=== PATIENT | female | born 1935 | race Caucasian/White ===

== ENCOUNTER 2019-11-23 11:34 | Inpatient (IN) ==
[2019-11-23] MEDS ORDERED: SODIUM CHLORIDE 0.9% 500 ML IV SCH (12:00)
[2019-11-23] MEDS ORDERED: VANCOMYCIN HCL 1,750 MG in SODIUM CHLORIDE 0.9% 500 ML IV ONE (12:06)
[2019-11-23] MEDS ORDERED: cefTRIAXone SODIUM 1,000 MG/50 ML BAG IV STA (12:06)
[2019-11-23] MEDS ORDERED: VANCOMYCIN CONSULT ACTIVE PRN (12:06)
--- NOTE | 2019-11-23 12:12 | Emergency Department Note ---
Impression & Plan Cellulitis, Lymphedema, Pelvic mass ED Provider Note NAME: ROBIN VILLAFUERTE AGE: 84 SEX: F : 1935 ARRIVES VIA: Walk-In INFORMANT: Patient, ED PROVIDER(S): Andry Barba DO CHIEF COMPLAINT: Lower extremity swelling HPI: The patient is an 84-year-old female who presented to the emergency department because of lower extremity swelling. The patient has a history of uterine cancer many years ago. She started having pelvic pain and was diagnosed with recurrence of her ovarian cancer. She has a very large pelvic mass. She s tarted receiving chemotherapy at our facility for this mass. She has not had surgery or radiation for this current episode of uterine cancer. She started noticing lower extremity swelling and weight gain over the last few weeks. She started having worsening symptoms over the last few days and is noticed redness which extends into her upper thigh. She also has symptoms that are now starting to develop on her left leg. She had no fever. She denies having any coughing or chest pain. She does complain of dyspnea on exertion but mostly because her leg is so much bigger than it is at baseline. She was started on Keflex by her primary care physician on Sunday but symptoms continue to worsen so her daughter brought her to our emergency department today for further evaluation. The patient is currently taking an anticoagulant for atrial fibrillation. ROS: See above HPI for pertinent positives & negatives. A total of 10 systems reviewed and were otherwise negative. PAST MEDICAL HISTORY: See Below PAST SURGICAL HISTORY: See Below FAMILY HISTORY: See Below SOCIAL HISTORY: See Below HOME MEDICATIONS: See Below ALLERGIES: See Below VITALS: See Below PHYSICAL EXAMINATION: GENERAL: Patient is awake alert in no acute distress patient is resting comfortably and showing no signs of anxiety EYES: The conjunctivae are clear. The pupils are round and reactive. EARS, NOSE, MOUTH AND THROAT: The nose is without any evidence of any deformity. Mucous membranes are moist. Tongue is midline. NECK: The neck is nontender and supple. RESPIRATORY: Diminished breath sounds are noted at the left base with rales at the left base. CARDIOVASCULAR: Irregular rhythm was noted to auscultation. There was a metallic click noted. GASTROINTESTINAL: The abdomen is soft. Abdomen is nontender. PELVIS: The Pelvis is stable. No tenderness to palpation is noted. BACK: No midline tenderness or or step-off noted range of motion in flexion extension as well as rotation no signs of muscle spasm noted MUSCULOSKELETAL/EXTREMITIES: There is no evidence of gross deformity full range of motion is noted in the hips and shoulders. SKIN: Significant bilateral pedal edema was noted. There is significant edema especially in the right lower extremity. It extends into the thigh and into the lower abdomen. There is venous stasis changes in both lower extremities with an ulceration on the medial left lower leg. There is also cellulitis noted in the right lower extremity which extends from the knee distally. NEUROLOGIC: Patient is awake alert and oriented x3. MEDICAL DECISION MAKING: The patient is an 84-year-old female who presented to the emergency department for lower extremity swelling and redness. The patient has a right-sided pelvic mass from a previous known endometrial cancer. Because of this she has very poor venous return and developed right lower extremity lymphedema. The patient started on an antibiotic Sunday for erythema. She presents emergency department today because of worsening swelling worsening redness and signs of significant cellulitis. The patient has a history of valve replacement. For this reason she was treated with IV antibiotics. I discussed the patient's laboratory and radiographic studies with her. I also [facility] have agreed to evaluate the patient in the emergency department for further management and disposition. I discussed the patient's condition with her daughter as well. Triage Nursing notes reviewed. Prior medical records reviewed Vital Signs: reviewed and remarkable for hypotension. Differential diagnosis: Cellulitis, abscess, MRSA infection, DVT, necrotizing fasciitis, dermatitis, drug eruption, allergic reaction, as well as other pathologies. ER treatment provided: See below Diagnostics interpreted by me: ECG: EKG was obtained in the emergency department. My interpretation is atrial fibrillation at [address]pm. Anterior and lateral ST depressions were noted. There were no PVCs noted. This was compared to a tracing from October 282019. No significant changes were noted. Cardiac Monitoring: An order was placed for continuous cardiac monitoring. The monitor shows a rate of 82 bpm with sinus rhythm. Laboratory studies: As stated above and show below. Imaging studies: See below Consultation(s): 1515: I discussed this case with Dr. Gamez who [facility] They will evaluate the patient in the emergency department for further management and disposition. Past Med/Surg History Medical History Aortic stenosis S/p AVR 2004 Atrial fibrillation Chronic Congestive heart failure Chronic diastolic GERD (gastroesophageal reflux disease) Hyperlipidemia Hypertension Pulmonary HTN 06/07/15 [facility] PAP 43/12, wedge 15 with V waves to 29; 07/13/27 ECHO showed mild pulm HTN per records Uterine cancer Dx'ed 1998- s/p hysterectomy - recently found to have intrapelvic mass on 10/01/19- dx'ed with metastatic endometrial carcinoma Surgical History H/O endoscopy 2018 H/O: hysterectomy 12/1998 Uterine Cancer History of aortic valve replacement 01/2005 History of cardiac cath Prior to AVR- coronary arteries non obstructive Hx of colonoscopy 2019 Social History Smoking Status: Never smoker Second Hand Exposure: No; Do You Dip or Chew Tobacco: No; Tobacco Cessation Education Requested by Patient: No Hx Alcohol Use: No Hx Substance Use: No Preferred Language: Malay Communication Ability: Effective 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 Beliefs That Will Affect Care: None marital status: / Current Living Situation: Family current occupational status: retired How many Children do You have: 4 Other Information That Helps Us Care for You: No Feels Safe at Home: Yes Safety Concerns: Feels Safe At This Time Allergies Allergies Allergy/AdvReac Type Severity Reaction Status Date / Time amlodipine Allergy swelling Verified 11/23/19 15:04 feet, legs, hands lisinopril Allergy cough, Verified 11/23/19 15:04 swelling, SOB losartan Allergy rash, Verified 11/23/19 15:04 hives, swelling, sleeplessness mint Allergy Swelling Verified 11/23/19 15:04 of Lip/Tongue/Throat hormone pills Allergy swelling Uncoded 11/23/19 15:04 of joints, couldn't walk, grayskin Home Meds Home Medications Medication Instructions Recorded Confirmed acetaminophen 325 mg tablet 325 mg PO QID PRN 10/27/19 11/23/19 anastrozole 1 mg tablet 1 mg PO QAM 10/27/19 11/23/19 atorvastatin 40 mg tablet 40 mg PO QAM 10/27/19 11/23/19 cholecalciferol (vitamin D3) 25 25 mcg PO PM 10/27/19 11/23/19 mcg (1,000 unit) capsule dexamethasone 4 mg tablet 4 mg PO DAILY PRN 10/27/19 11/23/19 famotidine 20 mg tablet 20 mg PO QAM 10/27/19 11/23/19 metoprolol tartrate 50 mg tablet 75 mg PO QAM tab 10/27/19 11/23/19 rivaroxaban 15 mg tablet 15 mg PO PM 10/27/19 11/23/19 cephalexin 500 mg PO TID 11/23/19 11/23/19 furosemide 40 mg PO QAM 11/23/19 11/23/19 Results & Data (ED) Vital Signs Vital Signs - 24 hr 11/23/19 11:48 11/23/19 12:10 11/23/19 12:20 Temperature 36.9 C Temperature Source Oral Pulse Rate 93 H 86 84 Pulse Rate from SpO2 Sensor Respiratory Rate 20 19 20 Respiratory Effort / Characteristics Non-Labored Spontaneous Respiratory Depth Normal Respiratory Pattern Regular Blood Pressure 113/60 Blood Pressure Mean 77 Pulse Oximetry 97 Oxygen Delivery Method Room Air Sepsis Recent Fever Within 48 Hours No Sepsis New/Unexplained Change in Mental Status N/A Sepsis Action Taken by Nursing No Action Required 11/23/19 12:30 11/23/19 12:40 11/23/19 12:50 Temperature Temperature Source Pulse Rate 86 84 84 Pulse Rate from SpO2 Sensor Respiratory Rate 20 14 24 Respiratory Effort / Characteristics Respiratory Depth Respiratory Pattern Blood Pressure Blood Pressure Mean Pulse Oximetry Oxygen Delivery Method Sepsis Recent Fever Within 48 Hours Sepsis New/Unexplained Change in Mental Status Sepsis Action Taken by Nursing 11/23/19 13:00 11/23/19 13:10 11/23/19 13:20 Temperature Temperature Source Pulse Rate 71 83 75 Pulse Rate from SpO2 Sensor 73 82 74 Respiratory Rate 22 19 24 Respiratory Effort / Characteristics Respiratory Depth Respiratory Pattern Blood Pressure 120/52 L Blood Pressure Mean 75 Pulse Oximetry 100 100 100 Oxygen Delivery Method Sepsis Recent Fever Within 48 Hours Sepsis New/Unexplained Change in Mental Status Sepsis Action Taken by Nursing 11/23/19 14:14 11/23/19 14:15 11/23/19 14:20 Temperature 36.6 C Temperature Source Pulse Rate 80 78 77 Pulse Rate from SpO2 Sensor 80 79 82 Respiratory Rate 24 24 17 Respiratory Effort / Characteristics Respiratory Depth Respiratory Pattern Blood Pressure 117/51 L Blood Pressure Mean 82 Pulse Oximetry 99 100 99 Oxygen Delivery Method Sepsis Recent Fever Within 48 Hours Sepsis New/Unexplained Change in Mental Status Sepsis Action Taken by Nursing 11/23/19 14:30 11/23/19 14:40 11/23/19 14:50 Temperature Temperature Source Pulse Rate 80 76 80 Pulse Rate from SpO2 Sensor 75 76 82 Respiratory Rate 27 H 21 23 Respiratory Effort / Characteristics Respiratory Depth Respiratory Pattern Blood Pressure 108/56 L Blood Pressure Mean 78 Pulse Oximetry 99 99 99 Oxygen Delivery Method Sepsis Recent Fever Within 48 Hours Sepsis New/Unexplained Change in Mental Status Sepsis Action Taken by Nursing 11/23/19 15:00 11/23/19 15:10 11/23/19 15:20 Temperature Temperature Source Pulse Rate 80 87 86 Pulse Rate from SpO2 Sensor 82 81 87 Respiratory Rate 25 H 18 27 H Respiratory Effort / Characteristics Respiratory Depth Respiratory Pattern Blood Pressure 114/60 Blood Pressure Mean 78 Pulse Oximetry 99 99 99 Oxygen Delivery Method Sepsis Recent Fever Within 48 Hours Sepsis New/Unexplained Change in Mental Status Sepsis Action Taken by Nursing 11/23/19 15:30 11/23/19 15:40 11/23/19 15:50 Temperature Temperature Source Pulse Rate 74 75 81 Pulse Rate from SpO2 Sensor 77 78 80 Respiratory Rate 22 20 24 Respiratory Effort / Characteristics Respiratory Depth Respiratory Pattern Blood Pressure 112/51 L Blood Pressure Mean 65 Pulse Oximetry 99 98 99 Oxygen Delivery Method Sepsis Recent Fever Within 48 Hours Sepsis New/Unexplained Change in Mental Status Sepsis Action Taken by Nursing 11/23/19 16:00 11/23/19 16:09 11/23/19 16:10 Temperature Temperature Source Pulse Rate 73 79 Pulse Rate from SpO2 Sensor 78 81 Respiratory Rate 23 19 Respiratory Effort / Characteristics Respiratory Depth Respiratory Pattern Blood Pressure 120/53 L Blood Pressure Mean 70 Pulse Oximetry 98 99 Oxygen Delivery Method Room Air Sepsis Recent Fever Within 48 Hours Sepsis New/Unexplained Change in Mental Status Sepsis Action Taken by Custodial Medications Current Medication List: was personally reviewed by me Laboratory Data Attestation: I reviewed the patient's lab results. Result diagrams: 11/23/19 12:06 11/23/19 12:06 Lab Results 11/23/19 11/23/19 11/23/19 Range/Units 12:06 12:06 12:06 WBC 7.86 (4.8-10.8) K/uL RBC 3.70 L (4.2-5.4) M/uL Hgb 10.7 L (12.0-16.0) g/dL Hct 32.6 L (37-47) % MCV 88.1 (80-100) fL MCH 28.9 (25-34) pg MCHC 32.8 (32-36) g/dL RDW Std Deviation 56.0 H (36.4-46.3) fL RDW Coeff of David 17.7 H (11.5-14.5) % Plt Count 210 (130-400) K/uL MPV 10.9 H (7.4-10.4) fL Immature Gran % (Auto) 0.6 % Neut % (Auto) 73.2 % Lymph % (Auto) 13.1 % Shannon % (Auto) 12.6 % Eos % (Auto) 0.1 % Baso % (Auto) 0.4 % Neut # (Auto) 5.75 (1.4-6.5) K/uL Lymph # (Auto) 1.03 L (1.2-3.4) K/uL Shannon # (Auto) 0.99 H (0.11-0.59) K/uL Eos # (Auto) 0.01 (0-0.5) K/uL Baso # (Auto) 0.03 (0-0.2) K/uL Immature Gran # (Auto) 0.05 H (0.00-0.02) K/uL ESR 57 H (0-21) mm/hr PT 14.2 H (9.0-12.0) Seconds INR 1.4 H (0.9-1.1) APTT 33.9 H (21.0-31.0) Seconds PTT Ratio 1.2 Sodium (136-145) mmol/L Potassium (3.5-5.1) mmol/L Chloride (98-107) mmol/L Carbon Dioxide (21-32) mmol/L Anion Gap (3-11) BUN (7-18) mg/dl Creatinine (0.6-1.2) mg/dl Est Cr Clr Drug Dosing ml/min Est GFR ( Amer) Est GFR (Non-Af Amer) BUN/Creatinine Ratio (10-20) Glucose (70-99) mg/dl Lactate (0.4-2.0) mmol/L Calcium (8.5-10.1) mg/dl Total Bilirubin (0.2-1) mg/dl AST (15-37) U/L ALT (12-78) U/L Alkaline Phosphatase (45-117) U/L Troponin I (0-0.045) ng/ml C-Reactive Protein (0-0.29) mg/dl Total Protein (6.4-8.2) gm/dl Albumin (3.4-5.0) gm/dl Globulin (2.5-4.0) gm/dl Albumin/Globulin Ratio (0.9-2) Procalcitonin (0-0.5) ng/ml 11/23/19 11/23/19 11/23/19 Range/Units 12:06 12:06 12:06 WBC (4.8-10.8) K/uL RBC (4.2-5.4) M/uL Hgb (12.0-16.0) g/dL Hct (37-47) % MCV (80-100) fL MCH (25-34) pg MCHC (32-36) g/dL RDW Std Deviation (36.4-46.3) fL RDW Coeff of David (11.5-14.5) % Plt Count (130-400) K/uL MPV (7.4-10.4) fL Immature Gran % (Auto) % Neut % (Auto) % Lymph % (Auto) % Shannon % (Auto) % Eos % (Auto) % Baso % (Auto) % Neut # (Auto) (1.4-6.5) K/uL Lymph # (Auto) (1.2-3.4) K/uL Shannon # (Auto) (0.11-0.59) K/uL Eos # (Auto) (0-0.5) K/uL Baso # (Auto) (0-0.2) K/uL Immature Gran # (Auto) (0.00-0.02) K/uL ESR (0-21) mm/hr PT (9.0-12.0) Seconds INR (0.9-1.1) APTT (21.0-31.0) Seconds PTT Ratio Sodium 136 (136-145) mmol/L Potassium 4.0 (3.5-5.1) mmol/L Chloride 103 (98-107) mmol/L Carbon Dioxide 25 (21-32) mmol/L Anion Gap 8.0 (3-11) BUN 22 H (7-18) mg/dl Creatinine 0.77 (0.6-1.2) mg/dl Est Cr Clr Drug Dosing 54.0 ml/min Est GFR ( Amer) 82.2 Est GFR (Non-Af Amer) 70.9 BUN/Creatinine Ratio 28.6 H (10-20) Glucose 99 (70-99) mg/dl Lactate 0.9 (0.4-2.0) mmol/L Calcium 10.1 (8.5-10.1) mg/dl Total Bilirubin 0.8 (0.2-1) mg/dl AST 25 (15-37) U/L ALT 17 (12-78) U/L Alkaline Phosphatase 167 H (45-117) U/L Troponin I < 0.015 (0-0.045) ng/ml C-Reactive Protein 5.06 H (0-0.29) mg/dl Total Protein 6.7 (6.4-8.2) gm/dl Albumin 2.8 L (3.4-5.0) gm/dl Globulin 3.9 (2.5-4.0) gm/dl Albumin/Globulin Ratio 0.7 L (0.9-2) Procalcitonin 0.10 (0-0.5) ng/ml Administered Medications Discontinued Medications Sodium Chloride (Nss) 500 mls @ 999 mls/hr IV .Q31M SLADE Stop: 11/23/19 12:30 Last Infusion: 11/23/19 13:14 Dose: 0 mls/hr Documented by: [id number] Admin: 11/23/19 12:42 Dose: 999 mls/hr Documented by: [id number] Ceftriaxone Sodium (Rocephin) 1,000 mg in 50 mls @ 100 mls/hr IV NOW STA Stop: 11/23/19 12:35 Last Infusion: 11/23/19 13:14 Dose: 0 mls/hr Documented by: [id number] Admin: 11/23/19 12:42 Dose: 100 mls/hr Documented by: [id number] Vancomycin HCl 1,750 mg/ (Sodium Chloride) 535 mls @ 200 mls/hr IV NOW ONE Stop: 11/23/19 14:46 Last Infusion: 11/23/19 16:02 Dose: 0 mls/hr Documented by: [id number] Admin: 11/23/19 13:14 Dose: 200 mls/hr Documented by: [id number] Imaging Data Radiologist's Impression: BILATERAL LOWER EXTREMITY VENOUS DOPPLER CLINICAL HISTORY: Lower extremity swelling COMPARISON STUDY: No previous studies for comparison. TECHNIQUE: Sonography of the deep venous system of the bilateral lower extremities was performed. Compression and augmentation were evaluated. FINDINGS: No deep venous thrombus is identified within either lower extremity however the right common femoral superficial femoral veins are suboptimally assessed due to a large 17.9 x 17.6 x 16.1 cm complex right groin abnormality which contains low level echoes. This may have several thickened septations which contains color flow. There is also a small right popliteal cyst. IMPRESSION: 1. No evidence of deep venous thrombus within the bilateral lower extremities although the right common femoral and superficial femoral veins are suboptimally assessed on this exam. 2. Large 17.9 x 17.6 x 16.1 complex hypoechoic abnormality of the right groin with low-level internal echoes and possible thickened septations with color flow. The sonographic appearance is nonspecific and differential considerations include hematoma, abscess or necrotic mass/lymph node. Comparison with prior imaging studies, if available, is recommended. ACT 112: Negative or not required by law. Electronically signed by: Prashanth Dickerson M.D. 11/23/2019 2:23 PM Dictated: 11/23/19 1420 Transcribed: 11/23/191419 XR chest 1V portable CLINICAL HISTORY: swelling COMPARISON STUDY: Chest radiograph October 29, 2019. FINDINGS: Left internal jugular [id number], median sternotomy wires and prosthetic cardiac valve are noted. Moderate cardiomegaly is present. Patient is mildly rotated. Interstitial thickening has slightly improved since prior exam. There is no pneumothorax or pleural effusion. IMPRESSION: 1. Pulmonary vascular congestion, improved since prior exam. 2. Moderate cardiomegaly. ACT 112: Negative or not required by law. Electronically signed by: Prashanth Dickerson M.D. 11/23/2019 2:38 PM Dictated: 11/23/19 143 Transcribed: 11/23/191436 Blood Pressure Blood Pressure Findings: Low blood pressure Discharge Plan Visit Data Chief Complaint: Leg Injury/Pain Stated Complaint: BILATERAL LEG SWELLING ED Provider: Andry Barba Discharge Problem: Cellulitis, Lymphedema, Pelvic mass Patient Disposition: Being Evaluated by Hospitalist Condition: Good Discharge Instructions Interventions: ED Discharge Assessment Last Done: 11/23/19 16:09 Forms Stand Alone Forms: My [facility] Prescriptions Prescriptions: No Action dexamethasone 4 mg tablet 4 mg PO DAILY PRN (Reason: pre chemo) RF: 0 famotidine 20 mg tablet 20 mg PO QAM RF: 0 metoprolol tartrate 50 mg tablet 75 mg PO QAM RF: 0 Xarelto 15 mg tablet 15 mg PO PM RF: 0 atorvastatin 40 mg tablet 40 mg PO QAM RF: 0 cholecalciferol (vitamin D3) 25 mcg (1,000 unit) capsule 25 mcg PO PM RF: 0 anastrozole 1 mg tablet 1 mg PO QAM RF: 0 acetaminophen 325 mg tablet 325 mg PO QID PRN (Reason: Pain) RF: 0 furosemide 40 mg tablet 40 mg PO QAM RF: 0 cephalexin 500 mg capsule 500 mg PO TID RF: 0 Referrals Referrals: Mateo Wray [Primary Care Provider] -
[2019-11-23 12:55] LABS: Basophils # (auto) 0.03 K/uL (0-0.2); Basophils % (auto) 0.4 %; Eosinophils # (auto) 0.01 K/uL (0-0.5); Eosinophils % (auto) 0.1 %; Hematocrit (blood only) 32.6 % (37-47); Hemoglobin 10.7 g/dL (12.0-16.0); Immature Granulocytes # (auto) 0.05 K/uL (0.00-0.02); Immature Granulocytes % (auto) 0.6 %; Lymphocytes # (auto) 1.03 K/uL (1.2-3.4); Lymphocytes % (auto) 13.1 %; Mean Corpuscular Hemoglobin 28.9 pg (25-34); Mean Corpuscular Hgb Conc 32.8 g/dL (32-36); Mean Corpuscular Volume 88.1 fL (80-100); Mean Platelet Volume 10.9 fL (7.4-10.4); Monocytes # (auto) 0.99 K/uL (0.11-0.59); Monocytes % (auto) 12.6 %; Neutrophils # (auto) 5.75 K/uL (1.4-6.5); Neutrophils % (auto) 73.2 %; Platelet Count 210 K/uL (130-400); RDW Coefficient of Variation 17.7 % (11.5-14.5); White Blood Count 7.86 K/uL (4.8-10.8)
[2019-11-23 13:06] LABS: INR 1.4 (0.9-1.1); Partial Thromboplastin Ratio 1.2; Partial Thromboplastin Time 33.9 Seconds (21.0-31.0); Prothrombin Time 14.2 Seconds (9.0-12.0)
[2019-11-23 13:09] LABS: Alanine Aminotransferase 17 U/L (12-78); Albumin Level 2.8 gm/dl (3.4-5.0); Aspartate Aminotransferase 25 U/L (15-37); BUN Creatinine Ratio 28.6 (10-20); Blood Urea Nitrogen 22 mg/dl (7-18); C Reactive Protein 5.06 mg/dl (0-0.29); Calcium 10.1 mg/dl (8.5-10.1); Carbon Dioxide 25 mmol/L (21-32); Chloride 103 mmol/L (98-107); Est GFR (African American) 82.2; Est GFR (Non-African American) 70.9; Glucose 99 mg/dl (70-99); Sodium 136 mmol/L (136-145)
[2019-11-23 13:13] LABS: Albumin Globulin Ratio 0.7 (0.9-2); Alkaline Phosphatase 167 U/L (45-117); Bilirubin,Total 0.8 mg/dl (0.2-1); Globulin 3.9 gm/dl (2.5-4.0); Total Protein 6.7 gm/dl (6.4-8.2); Troponin I < 0.015 ng/ml (0-0.045)
--- NOTE | 2019-11-23 14:25 | Ultrasound Report ---
BILATERAL LOWER EXTREMITY VENOUS DOPPLER CLINICAL HISTORY: Lower extremity swelling COMPARISON STUDY: No previous studies for comparison. TECHNIQUE: Sonography of the deep venous system of the bilateral lower extremities was performed. Co mpression and augmentation were evaluated. FINDINGS: No deep venous thrombus is identified within either lower extremity however the right commo n femoral superficial femoral veins are suboptimally assessed due to a large 17.9 x 17.6 x 16.1 cm co mplex right groin abnormality which contains low level echoes. This may have several thickened septat ions which contains color flow. There is also a small right popliteal cyst. IMPRESSION: 1. No evidence of deep venous thrombus within the bilateral lower extremities although the right comm on femoral and superficial femoral veins are suboptimally assessed on this exam. 2. Large 17.9 x 17.6 x 16.1 complex hypoechoic abnormality of the right groin with low-level internal echoes and possible thickened septations with color flow. The sonographic appearance is nonspecific and differential considerations include hematoma, abscess or necrotic mass/lymph node. Comparison wit h prior imaging studies, if available, is recommended. ACT 112: Negative or not required by law. Electronically signed by: Prashanth Dickerson M.D. 11/23/2019 2:23 PM
--- NOTE | 2019-11-23 14:40 | XRay Report ---
XR chest 1V portable CLINICAL HISTORY: swelling COMPARISON STUDY: Chest radiograph October 29, 2019. FINDINGS: Left internal jugular [id number], median sternotomy wires and prosthetic cardiac valve a re noted. Moderate cardiomegaly is present. Patient is mildly rotated. Interstitial thickening has sl ightly improved since prior exam. There is no pneumothorax or pleural effusion. IMPRESSION: 1. Pulmonary vascular congestion, improved since prior exam. 2. Moderate cardiomegaly. ACT 112: Negative or not required by law. Electronically signed by: Prashanth Dickerson M.D. 11/23/2019 2:38 PM
--- NOTE | 2019-11-23 15:29 | History & Physical Report ---
Date of Service November 23, 2019 Assessment & Plan (1) Cellulitis: will admit to med surg Will plac on ceftriaxone and vanco will delineate the erythema. will wrap the right lower leg to help decrease the swelling. may consider wound care consult (2) Lymphedema: concern this may be due to underlying mass. will give dose of lasix in AM. (3) Pelvic mass: will consult Dr. Green, she had appoitnemnt for treatment on Sunday (4) Hypertension: will resume metoprolol but succinate as she was only taking tartrate once daily. (5) Heart disease: will continue beta aleks, and atorvastatin (6) Atrial fibrillation: continue rivaroxaban History of Present Illness Chief Complaint: cellulitis Primary Care Provider: Mateo Wray This is a pleasant 84 yo female who presented to the ER with a history of worsening erythema for about 1 week accompanied by lower extremity swelling. Initially she noted only red spots a out 1 week ago, but as the days progressed the redness and warmth as well as her leg swelling as progressed. Today her right leg was painful and was weeping fluid, her daughter who lives with the patient was wrapping her leg but it did not decrease the swelling. Today she also noticed redness on her left leg too. Patient was diagnosed with uterine cancer many years ago. She started having pelvic pain and was diagnosed with recurrence of her ovarian cancer. She has a very large pelvic mass which she believes may be contributing to her lower extremity swelling. She started receiving chemotherapy at our facility for this mass. She has not had surgery or radiation for this current episode of uterine cancer. Allergies Allergy/AdvReac Type Severity Reaction Status Date / Time amlodipine Allergy swelling Verified 11/23/19 15:04 feet, legs, hands lisinopril Allergy cough, Verified 11/23/19 15:04 swelling, SOB losartan Allergy rash, Verified 11/23/19 15:04 hives, swelling, sleeplessness mint Allergy Swelling Verified 11/23/19 15:04 of Lip/Tongue/Throat hormone pills Allergy swelling Uncoded 11/23/19 15:04 of joints, couldn't walk, [place] Home Medications Home Medications Medication Instructions Recorded Confirmed Type acetaminophen 325 mg tablet 325 mg PO QID PRN 10/27/19 11/23/19 History anastrozole 1 mg tablet 1 mg PO QAM 10/27/19 11/23/19 History atorvastatin 40 mg tablet 40 mg PO QAM 10/27/19 11/23/19 History cholecalciferol (vitamin D3) 25 25 mcg PO PM 10/27/19 11/23/19 History mcg (1,000 unit) capsule dexamethasone 4 mg tablet 4 mg PO DAILY PRN 10/27/19 11/23/19 History famotidine 20 mg tablet 20 mg PO QAM 10/27/19 11/23/19 History metoprolol tartrate 50 mg tablet 75 mg PO QAM tab 10/27/19 11/23/19 History rivaroxaban 15 mg tablet 15 mg PO PM 10/27/19 11/23/19 History cephalexin 500 mg PO TID 11/23/19 11/23/19 History furosemide 40 mg PO QAM 11/23/19 11/23/19 History Past Med/Surg History Medical History Aortic stenosis S/p AVR 2004 Atrial fibrillation Chronic Congestive heart failure Chronic diastolic GERD (gastroesophageal reflux disease) Hyperlipidemia Hypertension Pulmonary HTN 06/07/15 [facility] PAP 43/12, wedge 15 with V waves to 29; 07/13/27 ECHO showed mild pulm HTN per records Uterine cancer Dx'ed 1998- s/p hysterectomy - recently found to have intrapelvic mass on 10/01/19- dx'ed with metastatic endometrial carcinoma Surgical History H/O endoscopy 2018 H/O: hysterectomy 12/1998 Uterine Cancer History of aortic valve replacement 01/2005 History of cardiac cath Prior to AVR- coronary arteries non obstructive Hx of colonoscopy 2019 Social History Smoking Status: Never smoker Second Hand Exposure: No; Do You Dip or Chew Tobacco: No; Tobacco Cessation Education Requested by Patient: No Hx Alcohol Use: No Hx Substance Use: No Preferred Language: Nepali Communication Ability: Effective Drilling Engineer Required: No Beliefs That Will Affect Care: None marital status: / Current Living Situation: Family current occupational status: retired How many Children do You have: 4 Other Information That Helps Us Care for You: No Feels Safe at Home: Yes Safety Concerns: Feels Safe At This Time Review of Systems Constitutional: + weight gain; no sweats and no malaise Eyes: no diplopia and no decreased night vision Ear, Nose, Mouth, Throat: + hearing loss (chronic); no ear pain and no tinnitus Respiratory: no change in sputum and no hemoptysis Cardiovascular: + chest pain with activity and + dyspnea at rest Gastrointestinal: no bloating Genitourinary: no dysuria and no urinary frequency Musculoskeletal: no radicular pain and no deformity Integumentary: no rash and no non-healing lesions Neurologic: + gait abnormality; no localized weakness Psychiatric: no hopelessness Endocrine: no polydipsia and no heat intolerance Hematologic / Lymphatic: no easy bruising Physical Exam Constitutional: WD/WN, vitals as above (enjoying the [place]ig[place] win on TV) no acute distress Eyes: PERRL, conjunctivae normal, anicteric sclerae ENMT: external ear and nose normal, oropharynx normal Neck: trachea midline, no thyromegaly Respiratory: normal respiratory effort, lungs clear to auscultation Cardiovascular: RRR, no murmur, no edema Gastrointestinal (Abdomen): normal bowel sounds, soft, nontender, no hepatosplenomegaly Musculoskeletal: Head/Neck/Chest: + head abnormal to inspection Skin: large are of erythema on her right leg, it appears to enatial the complete lower leg below the knee with small areas of non affected and normal appearing skin. Neurologic: PERRL, EOMI, accommodation nl, no face palsy, no dysarthria Psychiatric: A+Ox3, euthymic affect Results & Data Results & Data ([facility]) Vital Signs (Past 12 Hours) Vital Signs Temp Pulse Resp BP Pulse Ox 11/23/19 15:00 80 25 H 114/60 99 11/23/19 14:50 80 23 99 11/23/19 14:40 76 21 99 11/23/19 14:30 80 27 H 108/56 L 99 11/23/19 14:20 77 17 99 11/23/19 14:15 78 24 117/51 L 100 11/23/19 14:14 36.6 C 80 24 99 11/23/19 13:20 75 24 100 11/23/19 13:10 83 19 100 11/23/19 13:00 71 22 120/52 L 100 11/23/19 12:50 84 24 11/23/19 12:40 84 14 09/13/20 12:30 86 20 11/23/19 12:20 84 20 11/23/19 12:10 86 19 11/23/19 11:48 36.9 C 93 H 20 113/60 97 PG Care Time/CCT Total # of Minutes Spent Total Time Spent with Patient: Total time spent is greater than 50% in coordination of care (as documented) at patient's floor/unit and/or counseling patient: Coding Level of Care Code 56365 Initial Inpt Care Lvl 3 Diagnoses Cellulitis L03.115 Laterality: right Site of cellulitis: extremity Site of cellulitis of extremity: lower extremity Lymphedema I89.0 Pelvic mass R19.00 Hypertension I10 Heart disease I51.9 Atrial fibrillation I48.91 Time Spent (min) 55 (1) Cellulitis Laterality: right Site of cellulitis: extremity Site of cellulitis of extremity: lower extremity Qualified Code(s): L03.115 - Cellulitis of right lower limb
[2019-11-23] MEDS ORDERED: dexAMETHasone 4 MG TAB PO PRN (15:34)
[2019-11-23] MEDS ORDERED: METOPROLOL SUCC 25MG EXT REL TAB PO STA (16:23)
[2019-11-23] MEDS: RIVAROXABAN 15 MG TAB PO SCH ×2 (18:28→19:41)
--- NOTE | 2019-11-23 18:49 | Pharmacy Report ---
Pharmacy Abx Initial Consult - Date of Service November 23, 2019 - Pharmacy Dosing Scope Date of Consult: 11/23/19 Consultation requested by: Dr. Gamez Pharmacy is consulted to initiate Vancomycin IV/PO dosing therapy, order appropriate labs and adjust drug dose/frequency. - Subjective The patient is a 84 year old F admitted on 11/23/19 15:30. - Objective Height: 5 ft 2 in Weight: 82 kg Vital Signs (Past 12hrs): Vital Signs Temp Pulse Pulse Resp BP BP Pulse Ox 11/23/19 18:26 86 117/59 L 11/23/19 16:25 36.6 C 88 18 126/64 97 11/23/19 16:10 79 19 99 11/23/19 16:00 73 23 120/53 L 98 11/23/19 15:50 81 24 99 11/23/19 15:40 75 20 98 11/23/19 15:30 74 22 112/51 L 99 11/23/19 15:20 86 27 H 99 11/23/19 15:10 87 18 99 11/23/19 15:00 80 25 H 114/60 99 11/23/19 14:50 80 23 99 11/23/19 14:40 76 21 99 11/23/19 14:30 80 27 H 108/56 L 99 11/23/19 14:20 77 17 99 11/23/19 14:15 78 24 117/51 L 100 11/23/19 14:14 36.6 C 80 24 99 11/23/19 13:20 75 24 100 11/23/19 13:10 83 19 100 11/23/19 13:00 71 22 120/52 L 100 11/23/19 12:50 84 24 11/23/19 12:40 84 14 11/23/19 12:30 86 20 11/23/19 12:20 84 20 11/23/19 12:10 86 19 11/23/19 11:48 36.9 C 93 H 20 113/60 97 Lab Results (24hrs): Laboratory Tests (24 Hours) 11/23/19 11/23/19 11/23/19 12:06 12:06 12:06 WBC Neut # (Auto) ESR 57 H Creatinine 0.77 Est Cr Clr Drug Dosing 54.0 C-Reactive Protein 5.06 H Procalcitonin 0.10 11/23/19 12:06 WBC 7.86 Neut # (Auto) 5.75 ESR Creatinine Est Cr Clr Drug Dosing C-Reactive Protein Procalcitonin Micro Results: 11/23/19 12:00 Aerobic Blood Culture - Pending Blood Anaerobic Blood Culture - Pending 11/23/19 12:00 Aerobic Blood Culture - Pending Blood Anaerobic Blood Culture - Pending - Risk Factors for Resistance * Immunocompromised ( chemotherapy) * Antimicrobial use within the last 90 days: Started Keflex 11/20 for cellulitis - Assessment & Plan Assessment 84 year old F admitted for bilateral lower extremity swelling and cellulitis. * She is currently being treated for metastatic endometrial carcinoma. * Started Keflex on 11/21/19 for cellulitis. Presented to [facility] due to worsening of symptoms. * Renal function at baseline * Blood cultures pending. Plan Vancomycin for treatment of cellulitis Vancomycin IV * Patient meets criteria for vancomycin AUC dosing nomogram * AUC/MAXI is the preferred PK/PD target for vancomycin * Target AUC/MAXI = 400-600 * AUC guided dosing is effective and associated with decreased risk of nephrotoxicity * Loading dose: 1750 mg (21 mg/kg) * Maintenance dose: 1000 mg IV (12 mg/kg) every 12 hours * Goal trough level for cellulitis : 10 to 15 mcg/mL * Trough level ordered for 11/25/19 @1130 prior to fourth maintenance dose. Pharmacy will continue to follow and will adjust dose/frequency as necessary. Thank you.
[2019-11-23] MEDS: CHOLECALCIFEROL 1,000 UNITS 25 MCG TAB PO SCH (21:30)
[2019-11-23] MEDS: VANCOMYCIN HCL 1,000 MG in SODIUM CHLORIDE 0.9% 250 ML IV SCH (23:45)
[2019-11-24] MEDS: HEPARIN 100 UNIT/ML 5ML FLUSH FLUSH PRN (01:57)
[2019-11-24 08:14] LABS: Basophils # (auto) 0.02 K/uL (0-0.2); Basophils % (auto) 0.3 %; Eosinophils # (auto) 0.01 K/uL (0-0.5); Eosinophils % (auto) 0.1 %; Hematocrit (blood only) 28.9 % (37-47); Hemoglobin 9.4 g/dL (12.0-16.0); Immature Granulocytes # (auto) 0.03 K/uL (0.00-0.02); Immature Granulocytes % (auto) 0.4 %; Lymphocytes # (auto) 0.91 K/uL (1.2-3.4); Mean Corpuscular Hemoglobin 28.8 pg (25-34); Mean Corpuscular Hgb Conc 32.5 g/dL (32-36); Mean Corpuscular Volume 88.7 fL (80-100); Mean Platelet Volume 10.6 fL (7.4-10.4); Monocytes # (auto) 0.73 K/uL (0.11-0.59); Monocytes % (auto) 10.4 %; Neutrophils # (auto) 5.32 K/uL (1.4-6.5); Neutrophils % (auto) 75.8 %; Platelet Count 192 K/uL (130-400); RDW Coefficient of Variation 18.1 % (11.5-14.5); RDW Standard Deviation 57.3 fL (36.4-46.3); Red Blood Count 3.26 M/uL (4.2-5.4); White Blood Count 7.02 K/uL (4.8-10.8)
[2019-11-24 08:50] LABS: BUN Creatinine Ratio 27.2 (10-20); Calcium 9.9 mg/dl (8.5-10.1); Creatinine Clr Calc Pharmacy 59.4 ml/min; Est GFR (African American) 92.2; Est GFR (Non-African American) 79.6
[2019-11-24] MEDS ORDERED: METOPROLOL TARTRATE 25 MG TAB PO SCH (09:00)
--- NOTE | 2019-11-24 09:17 | Electrocardiogram Report ---
Test Reason : Blood Pressure : / mmHG Vent. Rate : 078 BPM Atrial Rate : 088 BPM P-R Int : 000 ms QRS Dur : 086 ms QT Int : 408 ms P-R-T Axes : 000 051 -04 degrees QTc Int : 465 ms Poor data quality, interpretation may be adversely affected Atrial fibrillation Nonspecific ST and T wave abnormality Abnormal ECG When compared with ECG of 29-OCT-2019 07:15, T wave inversion less evident in Anterior leads Confirmed by Andry Lin ([id number]) on 11/24/2019 9:17:07 AM Referred By: REFERRED SELF Confirmed By:Andry Lin
[2019-11-24] MEDS: ANASTROZOLE 1 MG TAB PO SCH (09:38)
[2019-11-24] MEDS: FAMOTIDINE 20 MG TAB PO SCH (09:38)
[2019-11-24] MEDS: ATORVASTATIN 40 MG TAB PO SCH (09:38)
--- NOTE | 2019-11-24 11:24 | Hospitalist Progress Note ---
Date of Service November 24, 2019 Assessment & Plan (1) Cellulitis: Continue ceftriaxone and vanco Continue to wrap the right lower leg to help decrease the swelling. Wound care consulted BC pending (2) Lymphedema: Likely secondary to underlying mass (3) Pelvic mass: Oncology consulted, she had appointment for treatment on Sunday Per outpatient notes from October - Biopsy was performed 10/01/2019 which showed metastatic adenocarcinoma consistent with endometrial primary. A staging CT showed a necrotic lesion with mass effect into the bladder extending into the right thigh. She has lytic destruction of the anterior half of the acetabulum and superior pubic ramus. Due to concern for stability of hip joint, she was advised by oncology to minimize weightbearing to that leg. Currently being treated with carboplatin and paclitaxel with plans for radiation (4) Hypertension: Metoprolol changed to succinate as she was only taking tartrate once daily. (5) Heart disease: Continue beta aleks, and atorvastatin (6) Atrial fibrillation: continue rivaroxaban (7) Anemia: Of chronic disease, in the setting of metastatic cancer undergoing chemotherapy treatments. No s/s of bleeding Will repeat am Admission and Anticipated Discharge Date Admission Date: November 23, 2019 Subjective Ms. House reports that she has numbness in her hands and right leg and that they sometimes "freeze up". This has been ongoing for at least a year. She currently does not have much pain. ROS Constitutional: no chills, aches, sweats or fever Respiratory: no sob,cough, sputum, or wheezing Cardiac: no chest pain, palpitations, edema, orthopnea or lightheadedness GI: no abdominal pain, nausea, vomiting, diarrhea or constipation : no dysuria or hesitancy Extremities: no joint pain or weakness Skin: cellulitis, weeping right leg All other systems reviewed and negative Physical Exam Physical Exam: General: no distress Eyes: normal inspection, PERLL Respiratory: chest non tender, clear to auscultation, normal breath sounds, no respiratory distress, no accessory muscle use Cardiac: regular rate and rhythm, no rub or gallop, no murmur, +2 pitting edema left leg, +3 pitting edema right leg, no jvd GI/: active bowel sounds, no abd pain or tenderness, soft, non distended Extremities: normal range of motion, normal strength, non tender Neuro/Psych: alert and oriented x 3, normal mood and affect Skin: normal color, dry, both legs with small red papules, more on the right. Right leg with erythema from below knee to foot. Results & Data Results & Data ([facility]) Vital Signs (Past 12 Hours) Vital Signs Temp Pulse Resp BP Pulse Ox 11/24/19 06:45 36.8 C 83 19 111/52 L 97 11/24/19 00:02 37.0 C 94 H 14 122/64 96 PG Care Time/CCT Total # of Minutes Spent Total Time Spent with Patient: Total time spent is greater than 50% in coordination of care (as documented) at patient's floor/unit and/or counseling patient: Coding Level of Care Code 60751 Subseq Hosp Care Lvl 3 Diagnoses Cellulitis L03.115 Laterality: right Site of cellulitis: extremity Site of cellulitis of extremity: lower extremity Lymphedema I89.0 Pelvic mass R19.00 Hypertension I10 Heart disease I51.9 Atrial fibrillation I48.91 Anemia D64.9 (1) Cellulitis Laterality: right Site of cellulitis: extremity Site of cellulitis of extremity: lower extremity Qualified Code(s): L03.115 - Cellulitis of right lower limb
[2019-11-24] MEDS: cefTRIAXone SODIUM 2,000 MG in DEXTROSE 5% 50 ML IV SCH (12:46)
[2019-11-24] MEDS: VANCOMYCIN HCL 1,000 MG in SODIUM CHLORIDE 0.9% 250 ML IV SCH (13:35)
[2019-11-24] MEDS: RIVAROXABAN 15 MG TAB PO SCH (17:36)
[2019-11-24] MEDS: CHOLECALCIFEROL 1,000 UNITS 25 MCG TAB PO SCH (20:08)
[2019-11-25] MEDS: VANCOMYCIN HCL 1,000 MG in SODIUM CHLORIDE 0.9% 250 ML IV SCH ×2 (00:07→12:32)
[2019-11-25] MEDS: HEPARIN 100 UNIT/ML 5ML FLUSH FLUSH PRN ×2 (02:44→05:49)
[2019-11-25 06:34] LABS: Hematocrit (blood only) 28.9 % (37-47); Hemoglobin 9.3 g/dL (12.0-16.0); Mean Corpuscular Hemoglobin 28.6 pg (25-34); Mean Corpuscular Hgb Conc 32.2 g/dL (32-36); Mean Corpuscular Volume 88.9 fL (80-100); Mean Platelet Volume 10.8 fL (7.4-10.4); Platelet Count 203 K/uL (130-400); RDW Coefficient of Variation 18.3 % (11.5-14.5); RDW Standard Deviation 58.1 fL (36.4-46.3); Red Blood Count 3.25 M/uL (4.2-5.4); White Blood Count 6.39 K/uL (4.8-10.8)
[2019-11-25 07:09] LABS: BUN Creatinine Ratio 20.1 (10-20); Calcium 9.1 mg/dl (8.5-10.1); Creatinine Clr Calc Pharmacy 50.1 ml/min; Est GFR (African American) 75.1; Est GFR (Non-African American) 64.8; Potassium 3.5 mmol/L (3.5-5.1)
[2019-11-25] MEDS: ANASTROZOLE 1 MG TAB PO SCH (08:33)
[2019-11-25] MEDS: FAMOTIDINE 20 MG TAB PO SCH (08:33)
[2019-11-25] MEDS: ATORVASTATIN 40 MG TAB PO SCH (08:33)
[2019-11-25] MEDS ORDERED: VANCOMYCIN TROUGH ONE (11:30)
[2019-11-25] MEDS: cefTRIAXone SODIUM 2,000 MG in DEXTROSE 5% 50 ML IV SCH (11:40)
--- NOTE | 2019-11-25 12:48 | Pharmacy Report ---
Pharmacy Abx Dose Short Note - Date of Service November 25, 2019 - Assessment & Plan Assessment 84 year old F receiving vancomycin/rocephin for treatment of cellulitis Day # 3 of antimicrobial therapy. Plan Vancomycin * Trough level came back therapeutic at ~14.7 mcg/ml - goal 10-15 mcg/ml for cellulitis * Plan to continue same vancomycin dosing of 1 gm iv q 12 hrs * Renal function remains stable / no change * Plan to collect trough in next 3-4 days if continued Pharmacy will continue to follow and will adjust dose/frequency as necessary. Thank you.
--- NOTE | 2019-11-25 13:12 | Hospitalist Progress Note ---
Date of Service November 25, 2019 Assessment & Plan (1) Cellulitis: Continue ceftriaxone and vanco Continue to wrap the right lower leg to help decrease the swelling. Wound care consulted BC no growth (2) Lymphedema: Likely secondary to underlying mass (3) Pelvic mass: Oncology consulted, she had appointment for treatment on Sunday Per outpatient notes from October - Biopsy was performed 10/01/2019 which showed metastatic adenocarcinoma consistent with endometrial primary. A staging CT showed a necrotic lesion with mass effect into the bladder extending into the right thigh. She has lytic destruction of the anterior half of the acetabulum and superior pubic ramus. Due to concern for stability of hip joint, she was advised by oncology to minimize weightbearing to that leg. Currently being treated with carboplatin and paclitaxel with plans for radiation Oncology recommended consulting rad onc (4) Hypertension: Metoprolol changed to succinate as she was only taking tartrate once daily. (5) Heart disease: Continue beta aleks, and atorvastatin (6) Atrial fibrillation: continue rivaroxaban (7) Anemia: Of chronic disease, in the setting of metastatic cancer undergoing chemotherapy treatments. No s/s of bleeding hgb stable Admission and Anticipated Discharge Date Admission Date: November 23, 2019 Subjective Ms. House is not having pain today, she appears comfortable sitting in her chair. She has no complaints. ROS Constitutional: no chills, aches, sweats or fever Respiratory: no sob,cough, sputum, or wheezing Cardiac: no chest pain, palpitations, edema, orthopnea or lightheadedness GI: no abdominal pain, nausea, vomiting, diarrhea or constipation : no dysuria or hesitancy Extremities: no joint pain or weakness Skin: cellulitis, weeping right leg All other systems reviewed and negative Physical Exam Physical Exam: General: no distress Eyes: normal inspection, PERLL Respiratory: chest non tender, clear to auscultation, normal breath sounds, no respiratory distress, no accessory muscle use Cardiac: regular rate and rhythm, no rub or gallop, no murmur, edema right leg > left + 3 pitting edema, no jvd GI/: active bowel sounds, no abd pain or tenderness, soft, non distended Extremities: normal range of motion, normal strength, non tender Neuro/Psych: alert and oriented x 3, normal mood and affect Skin: normal color, dry, lower extremities with continue erythema and red papules Results & Data Results & Data ([facility]) Vital Signs (Past 12 Hours) Vital Signs Temp Pulse Resp BP Pulse Ox 11/25/19 07:22 36.8 C 89 16 116/61 95 PG Care Time/CCT Total # of Minutes Spent Total Time Spent with Patient: Total time spent is greater than 50% in coordination of care (as documented) at patient's floor/unit and/or counseling patient: Coding Level of Care Code 07545 Subseq Hosp Care Lvl 2 Diagnoses Cellulitis L03.115 Laterality: right Site of cellulitis: extremity Site of cellulitis of extremity: lower extremity Lymphedema I89.0 Pelvic mass R19.00 Hypertension I10 Heart disease I51.9 Atrial fibrillation I48.91 Anemia D64.9 (1) Cellulitis Laterality: right Site of cellulitis: extremity Site of cellulitis of extremity: lower extremity Qualified Code(s): L03.115 - Cellulitis of right lower limb
[2019-11-25] MEDS: RIVAROXABAN 15 MG TAB PO SCH (17:28)
[2019-11-25] MEDS: CHOLECALCIFEROL 1,000 UNITS 25 MCG TAB PO SCH (20:44)
--- NOTE | 2019-11-25 23:00 | Consultation Report ---
DATE OF CONSULTATION: 11/25/2019 HISTORY OF PRESENT ILLNESS: The patient has metastatic uterine cancer. She was admitted to the hospital because of a swollen ulcerated right leg. The patient has documented metastatic disease to right acetabulum and inferior pubic rami. She has a large pelvic mass. PHYSICAL EXAMINATION: GENERAL: The patient is thin, frail, and chronically ill appearing. EXTREMITIES: She has massive swelling of right leg and bandaged ulcerated anterior tibial area. 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 She also has pain in her right hip due to her metastatic disease. I think the patient's best interests would be served by radiating the pelvic mass as well as acetabulum and inferior pubic rami. This would potentially give some relief to the status of her right leg as well as promote her ability to ambulate without pain. I do not think she would tolerate chemotherapy very well. Depending on her response to radiation therapy, which I feel should take precedence, this decision can be made for palliative chemotherapy. If she gets chemotherapy, it would likely take the form of low-dose weekly Taxol and carboplatin. This would give better control at preventing and managing toxicities. Her regular oncologist is Dr. Green. When the patient is discharged, she should be given an appointment with Dr. Green. I spoke to the patient's daughter, who feels when the patient is medically stable, that she can transport her mother back and forth for radiation. Thank you for this consultation. TRINO
[2019-11-26] MEDS: VANCOMYCIN HCL 1,000 MG in SODIUM CHLORIDE 0.9% 250 ML IV SCH ×2 (00:31→13:17)
[2019-11-26] MEDS: HEPARIN 100 UNIT/ML 5ML FLUSH FLUSH PRN ×3 (02:48→16:33)
[2019-11-26 06:27] LABS: Hematocrit (blood only) 28.1 % (37-47); Hemoglobin 9.2 g/dL (12.0-16.0); Mean Corpuscular Hemoglobin 28.9 pg (25-34); Mean Corpuscular Hgb Conc 32.7 g/dL (32-36); Mean Corpuscular Volume 88.4 fL (80-100); Platelet Count 203 K/uL (130-400); RDW Standard Deviation 57.5 fL (36.4-46.3); Red Blood Count 3.18 M/uL (4.2-5.4)
[2019-11-26 06:51] LABS: Albumin Level 2.1 gm/dl (3.4-5.0); BUN Creatinine Ratio 22.3 (10-20); Calcium 9.1 mg/dl (8.5-10.1); Creatinine Clr Calc Pharmacy 72.9 ml/min; Est GFR (African American) 98.7; Est GFR (Non-African American) 85.1; Potassium 3.9 mmol/L (3.5-5.1)
[2019-11-26 06:53] LABS: Albumin Globulin Ratio 0.6 (0.9-2); Globulin 3.4 gm/dl (2.5-4.0); Total Protein 5.5 gm/dl (6.4-8.2)
--- NOTE | 2019-11-26 08:41 | Progress Notes ---
DATE: 11/26/2019 DIAGNOSES: 1. Lower extremity cellulitis. 2. Lymphedema. 3. Metastatic endometrial carcinoma. 4. Hypertension. 5. Atrial fibrillation. SUBJECTIVE: A very pleasant 84-year-old female well known to me, currently receiving weekly carboplatin and paclitaxel for metastatic endometrial carcinoma. She was admitted to the hospital a couple of days ago with swollen oozing right lower extremity. She is currently receiving combination of vancomycin and ceftriaxone. Again, she has been without fever. Await formal recommendations from the hospitalist regarding discharge, so we can resume chemotherapy. Nursing reports no overnight difficulties. The patient otherwise seems to be doing reasonably well. PHYSICAL EXAMINATION: GENERAL: Very pleasant 84-year-old female, awake, alert and appropriate, in no acute distress. VITAL SIGNS: Temperature 36.6, pulse 91, respiratory rate 15, blood pressure 117/61. SKIN: Without rash or lesion. Lower extremities are wrapped with sterile gauze. HEENT: Oral mucosa without erythema or ulceration. Alopecia noted attributable to chemotherapy. HEART: Regular rate and rhythm. LUNGS: Bibasilar crackles bilaterally. ABDOMEN: Soft, nontender, nondistended. EXTREMITIES: Chronic lymphedema of the lower extremities. LABORATORY DATA: Sodium 137, potassium 3.9, chloride 106, carbon dioxide 27, creatinine 0.57, BUN 13, alkaline phosphatase 133, albumin 2.1. RADIOGRAPHIC DATA: Bilateral lower extremity venous Doppler, large 17.9 x 17.6 x 16.1 complex hypoechoic anomaly in the right groin at the level of internal echoes, possible thickened septations with color flow noted. IMPRESSION: 1. Metastatic endometrial carcinoma. 2. Chronic lymphedema and cellulitis of the right lower extremity. 3. Hypoalbuminemia. 4. Status post carboplatin and paclitaxel chemotherapy. PLAN: Agree with antibiotics. I actually believe the Dr. Paris's suggestion for palliative radiation therapy to the pelvic mass may prove to be helpful and would like you to go ahead and proceed with a consultation. Certainly, she does not have to stay to receive XRT. They could see her in-house and plan for outpatient followup. I plan to resume chemotherapy as soon as she is medically stable to do so. I have nothing further to add at this point and will plan on seeing her in the outpatient arena. Thank you again for assisting us in the care of this very pleasant patient.
[2019-11-26] MEDS: ANASTROZOLE 1 MG TAB PO SCH (08:50)
[2019-11-26] MEDS: FAMOTIDINE 20 MG TAB PO SCH (08:50)
[2019-11-26] MEDS: ATORVASTATIN 40 MG TAB PO SCH (10:17)
--- NOTE | 2019-11-26 12:16 | Radiation OncologyConsultation ---
Date of Consultation November 26, 2019 Assessment & Plan (1) Uterine cancer: Assessment: Ms. 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 The patient was receiving carboplatin/Taxol chemotherapy underneath the supervision of Dr. Green. The patient did receive her first cycle of chemotherapy and then was admitted to the hospital for right lower extremity cellulitis. The recommendation for medical oncology is to temporarily stop chemotherapy and consider palliative external beam radiation therapy to the right pelvis and pelvic mass. I am now seeing the patient in consultation to discuss the role of radiation therapy. Recommendation: Palliative external beam radiation therapy to the right pelvis and pelvic mass. I did have the opportunity to explain this to the patient's daughter, Haily, who was in agreement with the treatment plan. Plan: 1. CT simulation for treatment planning for radiation therapy in the outpatient setting. Appointment will be given to patient and daughter prior to discharge. 2. Continue follow-up with medical oncology in the outpatient setting. 3. Continue current pain regiment as per primary medical team. 4. Continue all other management as per primary medical team. 5. Patient and family encouraged to call us with any further questions or concerns. Rationale/Explanation of Treatment: I did explain the indications, alternatives, benefits, risks and side effects of external beam radiation therapy. I did explain the most common side effects including, but not limited to, skin erythema, skin breakdown, hyperpigmentation, telangiectasia, wound complications, perianal fistula development, fistula formation, bowel obstruction, bowel perforation, vaginal dryness, vaginal stenosis, dyspareunia, dysuria, increased urinary frequency, urgency, diarrhea, constipation, melena, hematochezia, hematuria, radiation cystitis, radiation proctitis, fatigue, decreased blood counts, wound complications from surgery, rectal incontinence, secondary malignancy development. I did explain the procedures and daily process of radiation therapy. The patient understands and would be willing to consent to treatment. The patient and daughter had multiple questions which were answered to their full satisfaction. Thank you for allowing us to participate in the care of this patient. This chart was completed in part utilizing [employer] Voice Recognition software. Attempts were made to minimize the grammatical errors, random word insertions, pronoun errors and incomplete sentences. Any formal questions or concerns about the content, text or information contained within the body of this dictation should be directly addressed to the provider for clarification. Akiko Marshall MD Department of Radiation Oncology [facility] Present on Admission?: Yes History of Present Illness Attending Physician: Beny Marcus, History of Present Illness 1998. Patient diagnosed with grade 1 endometrial cancer. According to patient and daughter, patient instructed for no further adjuvant therapy. 09/2019. Patient presents with right lower extremity swelling and pain. 09/22/2019. CT of abdomen/pelvis. IMPRESSION: Large necrotic mass in the right hemipelvis extending to the right groin with complete lytic destruction of the anterior half of the acetabulum and lytic destruction of the superior pubic ramus and pubic symphysis bone. It was also extending to the left side with lytic destruction of the left superior pubic ramus. The mass measured 16.5 by 14 x 4 x 15.2 cm. There was some mass-effect on the bladder and the mass was also extending inferiorly to the right proximal thigh. Also noted was a cyst in the uncinate process of the pancreas measuring 1.5 x 1.4 cm. The liver was diffusely fatty without space-occupying lesions in the liver. Colon and small bowel appeared normal. Mesenteric lymph nodes were not enlarged. 10/01/2019. CT-guided biopsy of right pelvic mass. Pathology consistent with metastatic adenocarcinoma consistent with endometrial adenocarcinoma. 10/09/2019. CT of chest. Impression: Groundglass opacity measuring up to 7 mm along the anterior subpleural right middle lobe, and this region of respiratory motion artifact may represent atelectasis. No other lung nodules identified. Cardiomegaly. Enlarged bilateral main pulmonary arteries suggestive of pulmonary hypertension. Small hiatal hernia. 10/21/2019. Medical oncology consultation with Dr. Green. Recommendation is for weekly carboplatin and paclitaxel chemotherapy for 6 cycles followed by involved field radiation therapy. 10/28/2019. Carboplatin and Taxol chemotherapy cycle 1. 11/24/2019. Patient admitted to the hospital due to cellulitis of right lower extremity. 11/26/2019. Medical oncology inpatient evaluation by Dr. Green. Dr. Green has recommended consideration of radiation therapy to be completed in the outpatient setting potentially followed by further chemotherapy. Currently, the patient does have significant pain involving the right hip. Otherwise she has no significant complaints. Allergies Allergy/AdvReac Type Severity Reaction Status Date / Time amlodipine Allergy swelling Verified 11/23/19 15:04 feet, legs, hands lisinopril Allergy cough, Verified 11/23/19 15:04 swelling, SOB losartan Allergy rash, Verified 11/23/19 15:04 hives, swelling, sleeplessness mint Allergy Swelling Verified 11/23/19 15:04 of Lip/Tongue/Throat hormone pills Allergy swelling Uncoded 11/23/19 15:04 of joints, couldn't walk, grayskin Home Medications Home Medications Medication Instructions Recorded Confirmed Type acetaminophen 325 mg tablet 325 mg PO QID PRN 10/27/19 11/23/19 History anastrozole 1 mg tablet 1 mg PO QAM 10/27/19 11/23/19 History atorvastatin 40 mg tablet 40 mg PO QAM 10/27/19 11/23/19 History cholecalciferol (vitamin D3) 25 25 mcg PO PM 10/27/19 11/23/19 History mcg (1,000 unit) capsule dexamethasone 4 mg tablet 4 mg PO DAILY PRN 10/27/19 11/23/19 History famotidine 20 mg tablet 20 mg PO QAM 10/27/19 11/23/19 History metoprolol tartrate 50 mg tablet 75 mg PO QAM tab 10/27/19 11/23/19 History rivaroxaban 15 mg tablet 15 mg PO PM 10/27/19 11/23/19 History cephalexin 500 mg PO TID 11/23/19 11/23/19 History furosemide 40 mg PO QAM 11/23/19 11/23/19 History Patient History Medical History (Updated 11/26/19 @ 12:34 by Akiko Marshall MD) Aortic stenosis S/p AVR 2004 Atrial fibrillation Chronic Congestive heart failure Chronic diastolic GERD (gastroesophageal reflux disease) Hyperlipidemia Hypertension Pulmonary HTN 06/07/15 [facility] PAP 43/12, wedge 15 with V waves to 29; 07/13/27 ECHO showed mild pulm HTN per records Uterine cancer Dx'ed 1998- s/p hysterectomy - recently found to have intrapelvic mass on 10/01/19- dx'ed with metastatic endometrial carcinoma Surgical History H/O endoscopy 2018 H/O: hysterectomy 12/1998 Uterine Cancer History of aortic valve replacement 01/2005 History of cardiac cath Prior to AVR- coronary arteries non obstructive Hx of colonoscopy 2019 Social History Smoking Status: Never smoker Second Hand Exposure: No; Do You Dip or Chew Tobacco: No; Tobacco Cessation Education Requested by Patient: No Hx Alcohol Use: No Hx Substance Use: No Preferred Language: Telugu Communication Ability: Effective 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 Beliefs That Will Affect Care: None marital status: / Current Living Situation: Family current occupational status: retired How many Children do You have: 4 Other Information That Helps Us Care for You: No Feels Safe at Home: Yes Safety Concerns: Feels Safe At This Time Review of Systems Review of Systems: All systems reviewed & are unremarkable except as noted in HPI & below Physical Exam Constitutional: WD/WN, vitals as above Eyes: PERRL, conjunctivae normal, anicteric sclerae ENMT: external ear and nose normal, oropharynx normal Respiratory: normal respiratory effort, lungs clear to auscultation Cardiovascular: RRR, no murmur, no edema Musculoskeletal: Extremities: + limited ROM of extremities Lymphatic: Significant bilateral lower extremity edema. Right lower extremity edema greater than left. Right lower extremity is currently bandaged. Time Spent Attending I spent 15 minutes in preparation for this consultation including reviewing all the clinical records, reviewing laboratory studies, pathology reports and imaging results. I spent 35 minutes with direct face to face interaction with the patient and/or family including performing a physical exam and answering all questions. I spent 15 minutes documenting this patient's visit.
--- NOTE | 2019-11-26 12:58 | Discharge Summary ---
Date of Service November 26, 2019 Admission HPI Per Admitting Provider This is a pleasant 84 yo female who presented to the ER with a history of worsening erythema for about 1 week accompanied by lower extremity swelling. Initially she noted only red spots a out 1 week ago, but as the days progressed the redness and warmth as well as her leg swelling as progressed. Today her right leg was painful and was weeping fluid, her daughter who lives with the patient was wrapping her leg but it did not decrease the swelling. Today she also noticed redness on her left leg too. Patient was diagnosed with uterine cancer many years ago. She started having pelvic pain and was diagnosed with recurrence of her ovarian cancer. She has a very large pelvic mass which she believes may be contributing to her lower extremity swelling. She started receiving chemotherapy at our facility for this mass. She has not had surgery or radiation for this current episode of uterine cancer. Principal Diagnosis cellulitis Discharge Exam Constitutional WD/WN, vitals as above Respiratory normal respiratory effort, lungs clear to auscultation Cardiovascular Rate/Rhythm: regular rate and regular rhythm Heart Sounds: + murmur (systolic ) Extremities: + edema (bilateral lower extremities L>R ) Skin right leg with erythema, dry and flakey, no longer weeping, left leg with open area left medial lower leg, erythema - both legs improving from admission, Discharge Data Allergies Allergy/AdvReac Type Severity Reaction Status Date / Time amlodipine Allergy swelling Verified 11/23/19 15:04 feet, legs, hands lisinopril Allergy cough, Verified 11/23/19 15:04 swelling, SOB losartan Allergy rash, Verified 11/23/19 15:04 hives, swelling, sleeplessness mint Allergy Swelling Verified 11/23/19 15:04 of Lip/Tongue/Throat hormone pills Allergy swelling Uncoded 11/23/19 15:04 of joints, couldn't walk, grayskin Consultations 11/23/19 15:12 ED Decision to Admit Stat 11/24/19 07:22 Consult Oncology Routine 11/24/19 17:30 Consult Radiation Oncology Routine Ordered Studies 11/23/19 12:00 US venous doppler LE Stat Hospital Course (1) Cellulitis: Given IV ceftriaxone and vanco - will change to cefixime and doxycycline for two more weeks for home Continue to wrap the right lower leg to help decrease the swelling. Wound care consulted BC no growth (2) Lymphedema: Likely secondary to underlying mass. Continue home lasix (3) Pelvic mass: Oncology consulted, she had appointment for treatment on Sunday Per outpatient notes from October - Biopsy was performed 10/01/2019 which showed metastatic adenocarcinoma consistent with endometrial primary. A staging CT showed a necrotic lesion with mass effect into the bladder extending into the right thigh. She has lytic destruction of the anterior half of the acetabulum and superior pubic ramus. Due to concern for stability of hip joint, she was advised by oncology to minimize weightbearing to that leg. Currently being treated with carboplatin and paclitaxel with plans for radiation Oncology recommended consulting rad onc - patient will follow up outpatient to start treatments. (4) Hypertension: Continue home metoprolol (5) Heart disease: Continue beta aleks, and atorvastatin (6) Atrial fibrillation: continue rivaroxaban (7) Anemia: Of chronic disease, in the setting of metastatic cancer undergoing chemotherapy treatments. No s/s of bleeding hgb stable Total Time Total Time Spent Total Time Spent (In Minutes): greater than 30 minutes Discharge Plan Discharge Items Patient Disposition: Home - Home Health Services Reason For Visit: BILATERAL LYMPHEDEMA/POSSIBLE CELLUITIS Discharge Diagnosis: Cellulitis Condition on Discharge: Good Activity: Resume your previous activity Non-emergency contact: Primary Care Provider Call non-emergency contact if: you have any medication questions Follow-up/Referrals: Akiko Marshall MD [Physician] - Drew Green DO [Physician] - Mateo Wray [Primary Care Provider] - 12/03/19 11:00 am (Follow up within one week ) Diet: Regular Addtl Attending Provider Instructions: 1) Cellulitis: While you were here you received ceftriaxone and vancomcin (IV antibiotics) to treat your infection. You will discharge with doxycycline and cefixime for home for two more weeks. Home health should clean your right and left medial lower legs with saline and then cover with Aquacel Ag, ABD pads, and Kerlix. This should be changed every other day and if they become wet. Your blood cultures did not grow any bacterial cultures. Doxycycline can cause photosensitivity so please use sunscreen or cover ups and sunglasses when outside until you have finished your course. You should also avoid taking the medication with dairy products. Doxycycline can cause gastrointestinal discomfort and nausea, you can try taking the medication with food to avoid this effect. Do not take bismuth (Pepto-Bismol), calcium, iron, magnesium, zinc, multivitamins with minerals, colestipol, cholestyramine, didanosine, or antacids within 2 hours of this drug.Take with a full glass of water. Do not lie down for at least 30 minutes after taking this drug. (2) Pelvic mass: You were seen by radiation oncology and oncology while in the hospital. Please follow up with Dr. Akiko Marshall in the radiation oncology office for your initial CT and then radiation treatments. You should follow up with Dr. Green in his office. [facility] [facility] PT[facility]OT will evaluate and treat you. You will be given a prescription for a rollator walker to take with you for home Pending Studies at Discharge: No Stand-Alone Forms: My [facility] Medications and DC Order Prescriptions: New cefixime 400 mg capsule 400 mg PO DAILY Qty: 14 RF: 0 doxycycline hyclate 100 mg tablet 100 mg PO BID 14 Days Qty: 28 RF: 0 Continued dexamethasone 4 mg tablet 4 mg PO DAILY PRN (Reason: pre chemo) RF: 0 famotidine 20 mg tablet 20 mg PO QAM RF: 0 metoprolol tartrate 50 mg tablet 75 mg PO QAM RF: 0 Xarelto 15 mg tablet 15 mg PO PM RF: 0 atorvastatin 40 mg tablet 40 mg PO QAM RF: 0 cholecalciferol (vitamin D3) 25 mcg (1,000 unit) capsule 25 mcg PO PM RF: 0 anastrozole 1 mg tablet 1 mg PO QAM RF: 0 acetaminophen 325 mg tablet 325 mg PO QID PRN (Reason: Pain) RF: 0 furosemide 40 mg tablet 40 mg PO QAM RF: 0 Discontinued cephalexin 500 mg capsule 500 mg PO TID RF: 0 Discharge Orders: Discharge Order (Routine); Ordered 11/26/19 Ordered By: Suki Walker Admission Data Admit Date/Time: 11/23/19 15:30 Attending Provider: Beny Marcus Admit Provider: Noe Gamez Primary Care Provider: Mateo Wray Other Providers: Noe Gamez ; Drew Green V. ; [facility] ; Akiko Marshall Other Interventions: Discharge Summary Assessment (RN) Last Done: 11/26/19 14:00 Supervising Physician Co-Signing Physician Notes Patient seen and examined on the day of discharge. I agree with the discharge summary by Suki GRANDA. I have reviewed the chart including labs, imaging and plans for discharge. patient doing better, less redness, less pain, less heat from right leg ultimately she needs to follow up with radiation oncology to get treatment of mass this will hopefully improve lymphatic drainage, will be set up for recurrent cellulitis until this improves - Right leg cellulitis in setting of severe lymphedema from metastatic pelvic mass discharge on two more weeks of Cefdinir and Doxycycline follow up with oncology and PCP recommend getting opinion on radiation therapy Coding Level of Care Code D/C Day Management >30 mins Diagnoses Cellulitis L03.115 Laterality: right Site of cellulitis: extremity Site of cellulitis of extremity: lower extremity Lymphedema I89.0 Pelvic mass R19.00 Hypertension I10 Heart disease I51.9 Atrial fibrillation I48.91 Anemia D64.9
[2019-11-26] MEDS: cefTRIAXone SODIUM 2,000 MG in DEXTROSE 5% 50 ML IV SCH (13:18)
== END 2019-11-26 17:15 | disposition home health service (06) | DRG 603 ==
LOC: ED 11:34 → 3N 15:30 → SUATTDRO 15:30 → 3N 16:09

== ENCOUNTER 2020-02-11 15:32 | Inpatient (IN) ==
--- NOTE | 2020-02-11 17:17 | Emergency Department Note ---
History of Present Illness General Chief complaint: Pelvic Injury Stated complaint: RT SIDED PELVIC FX Time Seen by Provider: 02/11/20 17:04 Source: patient and family History of Present Illness Provider complaint: Right hip pain Onset (ago): week(s) Location: hip and right Radiation: other (Right pelvis) Severity: moderate Pain Consistency: + constant Maximum Pain Intensity: 6 Exacerbated By: + movement (Walking) Associated symptoms: no chest pain, no cough, no fever/chills, no nausea/vomiting and no shortness of breath This is an 84-year-old female who presents with right hip pain for 2 weeks. The patient states that she fell 2 weeks ago when her walker rolled away from her. She has been having pain to the hip for 2 weeks. Is worse when she walks on it. She rates it a 6 out of 10 in severity. She denies any other injuries. She was seen by her oncologist today who ordered a x-ray which showed a fracture to the hip and pelvis. She was sent to the ED for further evaluation. She denies any fever, cough or cold symptoms, chest pain, shortness of breath, or recent illness. She does state that she has some gas in her abdomen but no significant pain. She does state that she had chemotherapy today. She has a pelvic mass. She did not hit her head when she fell. She has no headache. She did not pass out when she fell. Home Medications Medication Instructions Recorded Confirmed Type acetaminophen 325 mg tablet 325 mg PO QID PRN 10/27/19 02/11/20 History anastrozole 1 mg tablet 1 mg PO QAM 10/27/19 02/11/20 History atorvastatin 40 mg tablet 40 mg PO QAM 10/27/19 02/11/20 History cholecalciferol (vitamin D3) 25 25 mcg PO PM 10/27/19 02/11/20 History mcg (1,000 unit) capsule metoprolol tartrate 50 mg tablet 25 mg PO QAM tab 10/27/19 02/11/20 History rivaroxaban 15 mg tablet 15 mg PO PM 10/27/19 02/11/20 History furosemide 40 mg PO QAM 11/23/19 02/11/20 History omeprazole [Prilosec] 40 mg PO DAILY 12/08/19 02/11/20 History polyethylene glycol 3350 17 17 g PO DAILY PRN 12/23/19 02/11/20 History gram/dose oral powder carboplatin 0 mg IV UD 01/21/20 02/11/20 History dexamethasone 2 mg PO .BID UD 01/21/20 02/11/20 History ondansetron HCl 8 mg PO Q8H PRN 01/21/20 02/11/20 History paclitaxel 0 mg IV UD 01/21/20 02/11/20 History prochlorperazine maleate 10 mg PO Q6H PRN 01/21/20 02/11/20 History Allergies Allergy/AdvReac Type Severity Reaction Status Date / Time amlodipine Allergy swelling Verified 02/11/20 19:33 feet, legs, hands lisinopril Allergy cough, Verified 02/11/20 19:33 swelling, SOB losartan Allergy rash, Verified 02/11/20 19:33 hives, swelling, sleeplessness mint Allergy Swelling Verified 02/11/20 19:33 of Lip/Tongue/Throat hormone pills Allergy swelling Uncoded 02/11/20 19:33 of joints, couldn't walk, grayskin Past Med/Surg History Medical History Aortic stenosis S/p AVR 2004 Atrial fibrillation Chronic Congestive heart failure Chronic diastolic GERD (gastroesophageal reflux disease) Hyperlipidemia Hypertension Pulmonary HTN 06/07/15 [facility] PAP 43/12, wedge 15 with V waves to 29; 07/13/27 ECHO showed mild pulm HTN per records Uterine cancer Surgical History H/O endoscopy 2018 H/O: hysterectomy 12/1998 Uterine Cancer History of aortic valve replacement 01/2005 History of cardiac cath Prior to AVR- coronary arteries non obstructive Hx of colonoscopy 2019 Social History Smoking Status: Never smoker Second Hand Exposure: No; Hx Alcohol Use: No Hx Substance Use: No Preferred Language: Ecuadorean Communication Ability: Effective Resident In Diagnostic Radiology Required: No Beliefs That Will Affect Care: None marital status: / Current Living Situation: Family current occupational status: retired How many Children do You have: 4 Feels Safe at Home: Yes Assistive Devices: Walker Review of Systems See HPI for pertinent positives & negatives. and A total of 10 systems reviewed and were otherwise negative Physical Exam Vital Signs Vital Signs - 24 hr 02/11/20 15:42 02/11/20 17:50 02/11/20 18:00 Temperature 36.8 C Temperature Source Oral Pulse Rate 87 65 70 Pulse Rate [Right Finger] Pulse Rate from SpO2 Sensor 66 Respiratory Rate 19 18 24 Blood Pressure 131/66 139/78 139/70 Blood Pressure [Right Arm] Blood Pressure Mean 87 98 95 Blood Pressure Mean [Right Arm] Pulse Oximetry 98 98 98 Oxygen Delivery Method Room Air Room Air Sepsis Recent Fever Within 48 Hours No Sepsis New/Unexplained Change in Mental Status N/A Sepsis Action Taken by Nursing No Action Required 02/11/20 18:04 02/11/20 18:30 02/11/20 18:31 Temperature Temperature Source Pulse Rate 62 69 67 Pulse Rate [Right Finger] Pulse Rate from SpO2 Sensor 62 72 66 Respiratory Rate 17 17 19 Blood Pressure 154/67 H Blood Pressure [Right Arm] Blood Pressure Mean 100 Blood Pressure Mean [Right Arm] Pulse Oximetry 98 97 99 Oxygen Delivery Method Sepsis Recent Fever Within 48 Hours Sepsis New/Unexplained Change in Mental Status Sepsis Action Taken by Nursing 02/11/20 19:00 02/11/20 19:01 02/11/20 19:42 Temperature Temperature Source Pulse Rate 74 71 Pulse Rate [Right Finger] 71 Pulse Rate from SpO2 Sensor 78 71 Respiratory Rate 20 22 16 Blood Pressure 148/78 H Blood Pressure [Right Arm] 117/96 Blood Pressure Mean 98 Blood Pressure Mean [Right Arm] 103 Pulse Oximetry 98 99 97 Oxygen Delivery Method Sepsis Recent Fever Within 48 Hours Sepsis New/Unexplained Change in Mental Status Sepsis Action Taken by Nursing Constitutional: Vital signs reviewed. Eyes: Pupils are equal round reactive to light. Conjunctiva are noninjected. ENT: Pharynx is clear without erythema or exudate. Mucous membranes are moist. Neck supple without meningeal signs. Respiratory: Clear to auscultation bilaterally. Breath sounds are equal bilaterally. Cardiovascular: Regular rate and rhythm. No rubs or gallops. GI: Soft, nondistended and nontender. Bowel sounds are present. Musculoskeletal: Tenderness to the right hip without shortening or deformity. Distal capillary refill is less than 2 seconds. Edema to the foot. Integumentary: No cyanosis. or jaundice. Neurological: The patient is awake and alert. No focal deficits. Psychiatric: Normal affect. Not anxious appearing. Medical Decision Making Differential Diagnosis Hip fracture, pelvic fracture, pathologic fracture, neutropenia, anemia Medical Records Attestation: I reviewed the patient's medical records. I did perform a limited focused review of portions of the patient's old chart on the electronic medical record. The patient had an x-ray of the hip and pelvis which showed a right femoral neck fracture and bilateral pathologic fractures of the pubic rami. The pubic rami fracture are noted to have no significant change. Laboratory Data Attestation: I reviewed the patient's lab results. Result diagrams: 02/11/20 17:46 02/11/20 17:46 Lab Results 02/11/20 02/11/20 02/11/20 Range/Units 17:46 17:46 17:46 WBC 2.58 L (4.8-10.8) K/uL RBC 3.58 L (4.2-5.4) M/uL Hgb 9.8 L (12.0-16.0) g/dL Hct 31.8 L (37-47) % MCV 88.8 (80-100) fL MCH 27.4 (25-34) pg MCHC 30.8 L (32-36) g/dL RDW Std Deviation 53.2 H (36.4-46.3) fL RDW Coeff of David 16.3 H (11.5-14.5) % Plt Count 185 (130-400) K/uL MPV 10.5 H (7.4-10.4) fL Immature Gran % (Auto) 0.8 % Neut % (Auto) 85.7 % Lymph % (Auto) 8.5 % [place] % (Auto) 5.0 % Eos % (Auto) 0.0 % Baso % (Auto) 0.0 % Neut # (Auto) 2.21 (1.4-6.5) K/uL Lymph # (Auto) 0.22 L (1.2-3.4) K/uL [place] # (Auto) 0.13 (0.11-0.59) K/uL Eos # (Auto) 0.00 (0-0.5) K/uL Baso # (Auto) 0.00 (0-0.2) K/uL Immature Gran # (Auto) 0.02 (0.00-0.02) K/uL PT 13.5 H (9.0-12.0) Seconds INR 1.3 H (0.9-1.1) APTT 33.6 H (21.0-31.0) Seconds PTT Ratio 1.2 Sodium (136-145) mmol/L Potassium (3.5-5.1) mmol/L Chloride (98-107) mmol/L Carbon Dioxide (21-32) mmol/L Anion Gap (3-11) BUN (7-18) mg/dl Creatinine (0.6-1.2) mg/dl Est Cr Clr Drug Dosing ml/min Est GFR ( Amer) Est GFR (Non-Af Amer) BUN/Creatinine Ratio (10-20) Glucose (70-99) mg/dl Calcium (8.5-10.1) mg/dl Blood Type A Positive Antibody Screen NEGATIVE 02/11/20 Range/Units 17:46 WBC (4.8-10.8) K/uL RBC (4.2-5.4) M/uL Hgb (12.0-16.0) g/dL Hct (37-47) % MCV (80-100) fL MCH (25-34) pg MCHC (32-36) g/dL RDW Std Deviation (36.4-46.3) fL RDW Coeff of David (11.5-14.5) % Plt Count (130-400) K/uL MPV (7.4-10.4) fL Immature Gran % (Auto) % Neut % (Auto) % Lymph % (Auto) % [place] % (Auto) % Eos % (Auto) % Baso % (Auto) % Neut # (Auto) (1.4-6.5) K/uL Lymph # (Auto) (1.2-3.4) K/uL [place] # (Auto) (0.11-0.59) K/uL Eos # (Auto) (0-0.5) K/uL Baso # (Auto) (0-0.2) K/uL Immature Gran # (Auto) (0.00-0.02) K/uL PT (9.0-12.0) Seconds INR (0.9-1.1) APTT (21.0-31.0) Seconds PTT Ratio Sodium 143 (136-145) mmol/L Potassium 4.2 (3.5-5.1) mmol/L Chloride 112 H (98-107) mmol/L Carbon Dioxide 25 (21-32) mmol/L Anion Gap 6.0 (3-11) BUN 19 H (7-18) mg/dl Creatinine 0.73 (0.6-1.2) mg/dl Est Cr Clr Drug Dosing 58.3 ml/min Est GFR ( Amer) 87.7 Est GFR (Non-Af Amer) 75.6 BUN/Creatinine Ratio 25.5 H (10-20) Glucose 144 H (70-99) mg/dl Calcium 9.8 (8.5-10.1) mg/dl Blood Type Antibody Screen Imaging Data Radiologist's Impression: XR hip RT min 2V CLINICAL HISTORY: Right hip pain. COMPARISON STUDY: Radiation oncology CT 12/15/2019. KUB 01/21/2020. FINDINGS: No significant change in the destructive change and pathologic fracture of the bilateral pubic rami. This corresponds to the patient's known pelvic mass. The bones are osteopenic. Slightly impacted subcapital right femoral neck fracture. No dislocation. The bones are osteopenic. IMPRESSION: 1. Slightly impacted subcapital right femoral neck fracture. 2. No significant change in the destructive change and pathologic fractures of bilateral pubic rami secondary to the patient's known pelvic mass. 3. These findings were called/faxed to the referring physician following dictation. ACT 112: Positive. There are findings on this exam that require communication between the performing entity and the patient following Patient Test Result Information Act ([place] Act 112) guidelines. Electronically signed by: Anthony Quintana M.D. 02/11/2020 1:41 PM SINGLE VIEW CHEST CLINICAL HISTORY: Preoperative examination. Hip fracture. FINDINGS: An AP, portable, semierect chest radiograph is compared to study dated 11/23/2019. The examination is degraded by portable technique and patient rotation. The patient is status post midline sternotomy and aortic valve surgery. A left-sided central venous infusion port is unchanged in position. The heart is enlarged noting atherosclerotic calcification of the thoracic aorta. There is pulmonary vascular congestion. Atelectasis is seen at the lung bases. No large pleural effusion or Pneumothorax is seen. The skeletal structures are osteopenic. The bony thorax is grossly intact. Degenerative change is noted in the shoulders and thoracic spine. IMPRESSION: Cardiomegaly with evidence of mild congestive failure. ACT 112: Negative or not required by law. Electronically signed by: Sourav Sagastume M.D. 02/11/2020 6:11 PM Dictated: 02/11/201809 Transcribed: 02/11/201809 ECG Data Attestation: I personally reviewed and interpreted this ECG as follows: Indication: + other (Hip fracture) Rate (beats per minute): 65 Rhythm: + atrial fibrillation ECG [place]: + Normal ECG ST segments: + T-wave inversions; no ST elevation ECG Findings: no PVCs MDM Narrative I did evaluate the patient as noted above. The patient was sent here for a hip fracture. She had chemotherapy today and her oncologist ordered a hip x-ray. She has a subcapital right femoral neck fracture. IV access was established. I did order and personally review the patient's 12-lead EKG as described above. She does have atrial fibrillation. I did order and personally reviewed the imag es of the patient's chest x-ray as described above. Chest x-ray is unremarkable. I did order and review the patient's blood work as noted in the electronic medical record. She has chronic leukopenia and anemia. Platelet count is within normal limits. Electrolytes are unremarkable other than a c hloride of 112. I did discuss the test results with the patient and her daughter. I did discuss the case with the hospitalist and rn field case manager. Impression & Plan Closed fracture of right hip, Bilateral fracture of pubic rami, Leukopenia, Anemia, Anticoagulated Discharge Plan Visit Data Chief Complaint: Pelvic Injury Stated Complaint: RT SIDED PELVIC FX ED Provider: Amrit Dawn Discharge Problem: Closed fracture of right hip, Bilateral fracture of pubic rami, Leukopenia, Anemia, Anticoagulated Patient Disposition: Admitted As Inpatient Discharge Instructions Interventions: ED Discharge Assessment Last Done: 02/11/20 21:01 Discharge Problem: Closed fracture of right hip Qualifiers: Encounter type: initial encounter Qualified Code(s): S72.001A - Fracture of unspecified part of neck of right femur, initial encounter for closed fracture Bilateral fracture of pubic rami Qualifiers: Encounter type: initial encounter Fracture type: closed Qualified Code(s): S32.591A - Other specified fracture of right pubis, initial encounter for closed fracture Leukopenia Qualifiers: Leukopenia type: unspecified Qualified Code(s): D72.819 - Decreased white blood cell count, unspecified Anemia Qualifiers: Anemia type: unspecified type Qualified Code(s): D64.9 - Anemia, unspecified
[2020-02-11 17:58] LABS: Hematocrit (blood only) 31.8 % (37-47); Hemoglobin 9.8 g/dL (12.0-16.0); Immature Granulocytes # (auto) 0.02 K/uL (0.00-0.02); Immature Granulocytes % (auto) 0.8 %; Lymphocytes # (auto) 0.22 K/uL (1.2-3.4); Lymphocytes % (auto) 8.5 %; Mean Corpuscular Hemoglobin 27.4 pg (25-34); Mean Corpuscular Hgb Conc 30.8 g/dL (32-36); Mean Corpuscular Volume 88.8 fL (80-100); Mean Platelet Volume 10.5 fL (7.4-10.4); Monocytes # (auto) 0.13 K/uL (0.11-0.59); Neutrophils # (auto) 2.21 K/uL (1.4-6.5); Neutrophils % (auto) 85.7 %; Platelet Count 185 K/uL (130-400); RDW Coefficient of Variation 16.3 % (11.5-14.5); RDW Standard Deviation 53.2 fL (36.4-46.3); Red Blood Count 3.58 M/uL (4.2-5.4); White Blood Count 2.58 K/uL (4.8-10.8)
[2020-02-11 18:09] LABS: INR 1.3 (0.9-1.1); Partial Thromboplastin Ratio 1.2; Partial Thromboplastin Time 33.6 Seconds (21.0-31.0); Prothrombin Time 13.5 Seconds (9.0-12.0)
--- NOTE | 2020-02-11 18:12 | XRay Report ---
SINGLE VIEW CHEST CLINICAL HISTORY: Preoperative examination. Hip fracture. FINDINGS: An AP, portable, semierect chest radiograph is compared to study dated 11/23/2019. The exami [place] is degraded by portable technique and patient rotation. The patient is status post midline pedro rnotomy and aortic valve surgery. A left-sided central venous infusion port is unchanged in position. The heart is enlarged noting atherosclerotic calcification of the thoracic aorta. There is pulmonary vascular congestion. Atelectasis is seen at the lung bases. No large pleural effusion or Pneumothora x is seen. The skeletal structures are osteopenic. The bony thorax is grossly intact. Degenerative ch mary is noted in the shoulders and thoracic spine. IMPRESSION: Cardiomegaly with evidence of mild congestive failure. ACT 112: Negative or not required by law. Electronically signed by: Sourav Sagastume M.D. 02/11/2020 6:11 PM
[2020-02-11 18:17] LABS: BUN Creatinine Ratio 25.5 (10-20); Calcium 9.8 mg/dl (8.5-10.1); Creatinine Clr Calc Pharmacy 58.3 ml/min; Est GFR (African American) 87.7; Est GFR (Non-African American) 75.6; Potassium 4.2 mmol/L (3.5-5.1)
[2020-02-11] MEDS ORDERED: ONDANSETRON INJ 2 MG/ML 2 ML VIAL IV PRN (19:46)
[2020-02-11] MEDS ORDERED: ACETAMINOPHEN 325 MG TAB PO PRN ×2 (19:46→21:48)
[2020-02-11] MEDS ORDERED: CARBOPLATIN IV SCH (21:48)
[2020-02-11] MEDS ORDERED: CHOLECALCIFEROL 1,000 UNITS 25 MCG TAB PO SCH (21:48)
[2020-02-11] MEDS ORDERED: POLYETHYLENE (MIRALAX) 17 GM PACK PO PRN (21:48)
[2020-02-11] MEDS ORDERED: dexAMETHasone 1 MG TAB PO SCH (21:48)
[2020-02-11] MEDS ORDERED: PROCHLORPERAZINE MALEATE 10 MG TAB PO PRN (21:48)
[2020-02-11] MEDS ORDERED: PACLITAXEL IV SCH (21:48)
[2020-02-11] MEDS ORDERED: ONDANSETRON 8MG OD TAB PO PRN (21:52)
[2020-02-11] MEDS ORDERED: MoRPHine SULFATE 2 MG/ML CARP IV PRN (21:55)
--- NOTE | 2020-02-11 21:55 | History & Physical Report ---
Date of Service February 11, 2020 Assessment & Plan (1) Closed fracture of right hip: Patient is an 84-year-old female with a past medical history of aortic stenosis status post AVR in 2004, atrial fibrillation chronic in nature, diastolic congestive heart failure, GERD, hyperlipidemia, hypertension, pulmonary hypertension, stage IV uterine cancer followed at the cancer care clinic she presents today with hip pain #Closed fracture of right hip Patient with x-ray evidence of a new fracture of her right hip. Orthopedic surgery was consulted for this. She also has known fractures of the bilateral pubic rami, these are secondary to her known mass. -Consult orthopedic surgery -We will make n.p.o. overnight in the event surgery wishes to intervene -Pain control -Consult PT/OT -Monitor for signs and symptoms of acute worsening #Leukopenia/anemia secondary to uterine cancer stage IV Secondary to cancer treatment monitored by Dr. Green -Continue anastrozole, carboplatin paclitaxel, and dexamethasone per Dr. Green #Hyperlipidemia -Continue atorvastatin 40 mg #GERD Continue omeprazole #Anticoagulation -On rivaroxaban 15 mg, will hold pending surgery evaluation FENa: N.p.o. after midnight, 100 of LR Code Status: Full DVT PPX: Rivaroxaban PT/OT: Ordered Dispo: [facility] Amor Rothman MD PGY 2, FCM This chart was completed utilizing [employer] voice recognition software. Grammatical errors, random word insertions, pronoun errors, and in complete sentences are an occasional consequence of the system. Any questions or concerns about the content, text, or information contained within the body of this dictation should be addressed directly to the physician for clarification. (2) Bilateral fracture of pubic rami: (3) Leukopenia: (4) Anemia: (5) Anticoagulated: (6) Hyperlipidemia: (7) GERD (gastroesophageal reflux disease): (8) Uterine cancer: Admission and Anticipated Discharge Date Admission Date: February 11, 2020 History of Present Illness Patient is an 84-year-old female with a past medical history of aortic stenosis status post AVR in 2004, atrial fibrillation chronic in nature, diastolic congestive heart failure, GERD, hyperlipidemia, hypertension, pulmonary hypertension, stage IV uterine cancer followed at the cancer care clinic she presents today with hip pain. She reports this that she was in her usual state of health at approximately 2 weeks ago she sustained a fall. She experienced no pain associated with this fall, no symptoms, in fact she even reports she was able to get up afterwards and vacuum the house. She lives at home with her daughter. She continued to ambulate until last when she began to experience pain, the pain progressively worsened in nature, there were no associated symptoms, no constitutional symptoms, no fevers no chills no nausea no vomiting no diarrhea, no other concerning signs or symptoms. She does not remember any further trauma besides the incident initially the described above. The pain continued to increase since last and during her visit with Dr. Green this morning he insisted that she proceed to the emergency department and obtain x-rays. X-rays demonstrated a slightly impacted subcapital right femoral neck fracture, no changes in other fractures, chest x-ray demonstrated cardiomegaly with mild congestive failure. Labs were pertinent for a depressed white blood cell count, likely secondary to her cancer treatment, hemoglobin was 9 this appears to be her baseline, INR 1.3, glucose 144 albumin was low at 2.8 SARS Covid test was negative. Given the patient's complex medical history, recent fracture, and age, she will be admitted to the hospital for orthopedic evaluation and subsequent treatment. Primary Care Provider: Mateo Wray Allergies Allergy/AdvReac Type Severity Reaction Status Date / Time amlodipine Allergy swelling Verified 02/11/20 19:33 feet, legs, hands lisinopril Allergy cough, Verified 02/11/20 19:33 swelling, SOB losartan Allergy rash, Verified 02/11/20 19:33 hives, swelling, sleeplessness mint Allergy Swelling Verified 02/11/20 19:33 of Lip/Tongue/Throat hormone pills Allergy swelling Uncoded 02/11/20 19:33 of joints, couldn't walk, grayskin Home Medications Medication Instructions Recorded Confirmed Type acetaminophen 325 mg tablet 325 mg PO QID PRN 10/27/19 02/11/20 History anastrozole 1 mg tablet 1 mg PO QAM 10/27/19 02/11/20 History atorvastatin 40 mg tablet 40 mg PO QAM 10/27/19 02/11/20 History cholecalciferol (vitamin D3) 25 25 mcg PO PM 10/27/19 02/11/20 History mcg (1,000 unit) capsule metoprolol tartrate 50 mg tablet 25 mg PO QAM tab 10/27/19 02/11/20 History rivaroxaban 15 mg tablet 15 mg PO PM 10/27/19 02/11/20 History furosemide 40 mg PO QAM 11/23/19 02/11/20 History omeprazole 40 mg PO DAILY 12/08/19 02/11/20 History polyethylene glycol 3350 17 17 g PO DAILY PRN 12/23/19 02/11/20 History gram/dose oral powder carboplatin 0 mg IV UD 01/21/20 02/11/20 History dexamethasone 2 mg PO .BID UD 01/21/20 02/11/20 History ondansetron HCl 8 mg PO Q8H PRN 01/21/20 02/11/20 History paclitaxel 0 mg IV UD 01/21/20 02/11/20 History prochlorperazine maleate 10 mg PO Q6H PRN 01/21/20 02/11/20 History Past Med/Surg History Medical History (Updated 02/13/20 @ 00:02 by Monika Ramos) Aortic stenosis S/p AVR 2004 Atrial fibrillation Chronic Congestive heart failure Chronic diastolic GERD (gastroesophageal reflux disease) Hyperlipidemia Hypertension Pulmonary HTN 06/07/15 [facility] PAP 43/12, wedge 15 with V waves to 29; 07/13/27 ECHO showed mild pulm HTN per records Uterine cancer Surgical History H/O endoscopy 2018 H/O: hysterectomy 12/1998 Uterine Cancer History of aortic valve replacement 01/2005 History of cardiac cath Prior to AVR- coronary arteries non obstructive Hx of colonoscopy 2019 Social History Smoking Status: Never smoker Second Hand Exposure: No; Hx Alcohol Use: No Hx Substance Use: No Preferred Language: Salvadorean Communication Ability: Effective Galley Worker Required: No Beliefs That Will Affect Care: None marital status: / Current Living Situation: Other Current Living Situation Comment: Daughter current occupational status: retired How many Children do You have: 4 Feels Safe at Home: Yes Assistive Devices: Walker Review of Systems Review of Systems: All systems reviewed & are unremarkable except as noted in HPI & below Physical Exam Physical Exam: General: No acute distress HEENT: Normocephalic atraumatic Neck: Normal to visual inspection, trachea midline Cardiac: Regular rate and rhythm, I did not appreciate any significant murmurs rubs or gallops, normal S1, normal S2, 3+ pitting edema this is known Respiratory: Clear to auscultation bilaterally without significant wheezes, rales, rhonchi GI: Soft, nontender, nondistended, bowel sounds present in all 4 quadrants MSK: Moves all extremities Skin: 2 known lesions on the right lower extremity Neuro: Alert and oriented x4 Psych: Calm and cooperative Results & Data Results & Data ([facility]) Vital Signs (Past 12 Hours) Vital Signs Temp Pulse Pulse Resp BP BP Pulse Ox 02/11/20 19:42 71 16 117/96 97 02/11/20 19:01 71 22 99 02/11/20 19:00 74 20 148/78 H 98 02/11/20 18:31 67 19 99 02/11/20 18:30 69 17 154/67 H 97 02/11/20 18:04 62 17 98 02/11/20 18:00 70 24 139/70 98 02/11/20 17:50 65 18 139/78 98 02/11/20 15:42 36.8 C 87 19 131/66 98 Laboratory Results 02/11/20 02/11/20 02/11/20 Range/Units Unknown 17:46 17:46 WBC (4.8-10.8) K/uL RBC (4.2-5.4) M/uL Hgb (12.0-16.0) g/dL Hct (37-47) % MCV (80-100) fL MCH (25-34) pg MCHC (32-36) g/dL RDW Std Deviation (36.4-46.3) fL RDW Coeff of David (11.5-14.5) % Plt Count (130-400) K/uL MPV (7.4-10.4) fL Immature Gran % (Auto) % Neut % (Auto) % Lymph % (Auto) % Josephine % (Auto) % Eos % (Auto) % Baso % (Auto) % Neut # (Auto) (1.4-6.5) K/uL Lymph # (Auto) (1.2-3.4) K/uL Josephine # (Auto) (0.11-0.59) K/uL Eos # (Auto) (0-0.5) K/uL Baso # (Auto) (0-0.2) K/uL Immature Gran # (Auto) (0.00-0.02) K/uL PT 13.5 H (9.0-12.0) Seconds INR 1.3 H (0.9-1.1) APTT 33.6 H (21.0-31.0) Seconds PTT Ratio 1.2 Sodium 143 (136-145) mmol/L Potassium 4.2 (3.5-5.1) mmol/L Chloride 112 H (98-107) mmol/L Carbon Dioxide 25 (21-32) mmol/L Anion Gap 6.0 (3-11) BUN 19 H (7-18) mg/dl Creatinine 0.73 (0.6-1.2) mg/dl Est Cr Clr Drug Dosing 58.3 ml/min Est GFR ( Amer) 87.7 Est GFR (Non-Af Amer) 75.6 BUN/Creatinine Ratio 25.5 H (10-20) Glucose 144 H (70-99) mg/dl Calcium 9.8 (8.5-10.1) mg/dl SARS-CoV-2 Ag (Rapid) Negative (Negative) Blood Type Antibody Screen 02/11/20 02/11/20 Range/Units 17:46 17:46 WBC 2.58 L (4.8-10.8) K/uL RBC 3.58 L (4.2-5.4) M/uL Hgb 9.8 L (12.0-16.0) g/dL Hct 31.8 L (37-47) % MCV 88.8 (80-100) fL MCH 27.4 (25-34) pg MCHC 30.8 L (32-36) g/dL RDW Std Deviation 53.2 H (36.4-46.3) fL RDW Coeff of David 16.3 H (11.5-14.5) % Plt Count 185 (130-400) K/uL MPV 10.5 H (7.4-10.4) fL Immature Gran % (Auto) 0.8 % Neut % (Auto) 85.7 % Lymph % (Auto) 8.5 % Josephine % (Auto) 5.0 % Eos % (Auto) 0.0 % Baso % (Auto) 0.0 % Neut # (Auto) 2.21 (1.4-6.5) K/uL Lymph # (Auto) 0.22 L (1.2-3.4) K/uL Josephine # (Auto) 0.13 (0.11-0.59) K/uL Eos # (Auto) 0.00 (0-0.5) K/uL Baso # (Auto) 0.00 (0-0.2) K/uL Immature Gran # (Auto) 0.02 (0.00-0.02) K/uL PT (9.0-12.0) Seconds INR (0.9-1.1) APTT (21.0-31.0) Seconds PTT Ratio Sodium (136-145) mmol/L Potassium (3.5-5.1) mmol/L Chloride (98-107) mmol/L Carbon Dioxide (21-32) mmol/L Anion Gap (3-11) BUN (7-18) mg/dl Creatinine (0.6-1.2) mg/dl Est Cr Clr Drug Dosing ml/min Est GFR ( Amer) Est GFR (Non-Af Amer) BUN/Creatinine Ratio (10-20) Glucose (70-99) mg/dl Calcium (8.5-10.1) mg/dl SARS-CoV-2 Ag (Rapid) (Negative) Blood Type A Positive Antibody Screen NEGATIVE Medications Administered Current Inpatient Medications Acetaminophen (Acetaminophen 325 Mg Tab) 650 mg PO Q4H PRN PRN Reason: pain/fever Stop: 03/12/20 19:45 Ondansetron HCl (Ondansetron Inj 2 Mg/Ml 2 Ml Vial) 4 mg IV Q6H PRN PRN Reason: Nausea Stop: 03/12/20 19:45 Polyethylene Glycol (Polyethylene (Miralax) 17 Gm Pack) 17 gm PO DAILY SLADE Stop: 03/13/20 08:59 Code Status & VTE Plan Code Status full VTE Prophylaxis Plan VTE Prophylaxis will be ordered: Yes Supervising Physician Co-Signing Physician Notes Attending addendum: I have physically seen this patient, have supervised the medical residents activities, and agree with the H&P unless as otherwise noted. Assessment and Plan: Closed fracture right hip- Geriatric hip fracture protocol NPO IV fluids Acetaminophen 650 mg p.o. every 6 hours as needed mild pain or temperature Oxycodone 5 mg p.o. every 4 hours as needed moderate pain Dilaudid 0.25 mg IV every 3 hours as needed severe pain Hold Xarelto until assessment by orthopedic surgery Associated with cystic mass Remaining orders and notations as noted Resident Activity Tracking Resident Involvement: Resident Care Provided Care Provided: Adult Hospital Medicine (1) Anemia Anemia type: unspecified type Qualified Code(s): D64.9 - Anemia, unspecified (2) Leukopenia Leukopenia type: unspecified Qualified Code(s): D72.819 - Decreased white blood cell count, unspecified (3) Bilateral fracture of pubic rami Encounter type: initial encounter Fracture type: closed Qualified Code(s): S32.591A - Other specified fracture of right pubis, initial encounter for closed fracture; S32.592A - Other specified fracture of left pubis, initial encounter for closed fracture (4) Closed fracture of right hip Encounter type: initial encounter Qualified Code(s): S72.001A - Fracture of unspecified part of neck of right femur, initial encounter for closed fracture
[2020-02-11] MEDS: LACTATED RINGER'S 1,000 ML IV SCH (22:46)
[2020-02-12] MEDS ORDERED: BUPIVACAINE 0.5 % 5 MG/1 ML PF 10ML VIAL ONE (06:51)
[2020-02-12] MEDS: LACTATED RINGER'S 1,000 ML IV SCH ×2 (07:46→18:22)
--- NOTE | 2020-02-12 07:47 | XRay Report ---
XR pelvis 1-2V routine CLINICAL HISTORY: Preop plan, the right hip fracture. COMPARISON STUDY: Right hip 02/11/2020. FINDINGS: Redemonstration of the impacted subcapital right femoral neck fracture. No dislocation. Isrrael tructive changes within the bilateral pubic bones from the patient's pelvic mass are again noted. The sacrum appears intact. IMPRESSION: 1. Impacted right subcapital femoral neck fracture, unchanged. 2. Destructive changes within the bilateral pubic bones with the patient's pelvic mass are again note d. ACT 112: Negative or not required by law. Electronically signed by: Anthony Quintana M.D. 02/12/2020 7:46 AM
--- NOTE | 2020-02-12 08:06 | Orthopedic Consultation ---
Date of Consultation February 12, 2020 Assessment & Plan (1) Closed traumatic nondisplaced fracture of neck of femur: 84-year-old female with multiple medical comorbidities and destructive pelvic mass while being treated for uterine cancer. She is developed right hip pain without clear evidence of a fall. X-rays suggest a valgus impacted femoral neck fracture. The plan is for surgical stabilization using close reduction percutaneous screw fixation. Given the history and the fracture pattern, things prudent to obtain an MR today to determine if this is true femoral neck fracture and whether there is any destructive lesions to consider on how to optimally treat this potential fractu re. Case is discussed with anesthesia and they prefer cardiac evaluation prior to surgical stabilization. Keep n.p.o. for now in case that her availability in the OR today. Will obtain the MRI hopefully as soon as possible. My recommendations were discussed with her daughter, Haily, on the phone. I told her the plan for surgical stabilization and I will update her if there is any delays or changes. History of Present Illness Reason for Consultation: Right hip pain Attending Physician: Amrit Real MD History of Present Illness 84-year-old female being treated for uterine cancer with a destructive pelvic guzman ne mass reported progressive right hip pain with weightbearing for the past several days that worsened yesterday. She could no longer bear weight on that side. She does not recall a fall. She does have multiple cardiac comorbidities and was recently being treated with chemo before transition to palliative radiation. She denies any antecedent hip pain. She usually walks with a walker. History was obtained from the patient and then verified with her daughter Haily. Allergies Allergy/AdvReac Type Severity Reaction Status Date / Time amlodipine Allergy swelling Verified 02/11/20 19:33 feet, legs, hands lisinopril Allergy cough, Verified 02/11/20 19:33 swelling, SOB losartan Allergy rash, Verified 02/11/20 19:33 hives, swelling, sleeplessness mint Allergy Swelling Verified 02/11/20 19:33 of Lip/Tongue/Throat hormone pills Allergy swelling Uncoded 02/11/20 19:33 of joints, couldn't walk, grayskin Home Medications Medication Instructions Recorded Confirmed Type acetaminophen 325 mg tablet 325 mg PO QID PRN 10/27/19 02/11/20 History anastrozole 1 mg tablet 1 mg PO QAM 10/27/19 02/11/20 History atorvastatin 40 mg tablet 40 mg PO QAM 10/27/19 02/11/20 History cholecalciferol (vitamin D3) 25 25 mcg PO PM 10/27/19 02/11/20 History mcg (1,000 unit) capsule metoprolol tartrate 50 mg tablet 25 mg PO QAM tab 10/27/19 02/11/20 History rivaroxaban 15 mg tablet 15 mg PO PM 10/27/19 02/11/20 History furosemide 40 mg PO QAM 11/23/19 02/11/20 History omeprazole [Prilosec] 40 mg PO DAILY 12/08/19 02/11/20 History polyethylene glycol 3350 17 17 g PO DAILY PRN 12/23/19 02/11/20 History gram/dose oral powder carboplatin 0 mg IV UD 01/21/20 02/11/20 History dexamethasone 2 mg PO .BID UD 01/21/20 02/11/20 History ondansetron HCl 8 mg PO Q8H PRN 01/21/20 02/11/20 History paclitaxel 0 mg IV UD 01/21/20 02/11/20 History prochlorperazine maleate 10 mg PO Q6H PRN 01/21/20 02/11/20 History Patient History Medical History Aortic stenosis S/p AVR 2004 Atrial fibrillation Chronic Congestive heart failure Chronic diastolic GERD (gastroesophageal reflux disease) Hyperlipidemia Hypertension Pulmonary HTN 06/07/15 [facility] PAP 43/12, wedge 15 with V waves to 29; 07/13/27 ECHO showed mild pulm HTN per records Uterine cancer Surgical History H/O endoscopy 2018 H/O: hysterectomy 12/1998 Uterine Cancer History of aortic valve replacement 01/2005 History of cardiac cath Prior to AVR- coronary arteries non obstructive Hx of colonoscopy 2019 Social History Smoking Status: Never smoker Second Hand Exposure: No; Hx Alcohol Use: No Hx Substance Use: No Preferred Language: Ugandan Communication Ability: Effective Mother Helper Required: No Beliefs That Will Affect Care: None marital status: / Current Living Situation: Other Current Living Situation Comment: Daughter current occupational status: retired How many Children do You have: 4 Other Information That Helps Us Care for You: No Feels Safe at Home: Yes Safety Concerns: Feels Safe At This Time Assistive Devices: Walker Review of Systems Review of Systems: All systems reviewed & are unremarkable except as noted in HPI & below Physical Exam Physical Exam: Right lower extremity: There is diffuse edema and mild erythema in her leg that is consistent with a past history of cellulitis and likely vascular congestion. She is full active range of motion through her ankle. She has no tenderness about the knee. She is nontender about the greater trochanter. She does have discomfort with logroll but does tolerate near full internal and external rotation. She has difficulty with straight leg raise. There are no overlying skin changes to about the hip. She is neurovascular intact. Constitutional: well developed and well nourished; no acute distress and not intoxicated appearing Respiratory: normal respiratory effort; no respiratory distress Cardiovascular: Extremities: normal capillary refill; no edema Skin: no rashes, warm and dry Psychiatric: A+Ox3, euthymic affect Results & Data ([facility]) Vital Signs (Past 12 Hours) Vital Signs Temp Pulse Resp BP Pulse Ox 02/12/20 07:16 36.6 C 79 16 131/75 97 02/11/20 23:25 36.3 C L 77 16 142/70 H 97 02/11/20 21:51 36.5 C 76 18 135/71 94 Laboratory Results H & H 02/11/20 02/12/20 Range/Units 17:46 08:44 Hgb 9.8 L 9.4 L (12.0-16.0) g/dL Hct 31.8 L 29.7 L (37-47) % Coagulation 02/11/20 Range/Units 17:46 INR 1.3 H (0.9-1.1) Diagnostic Findings AP pelvis: AP pelvic x-ray shows destructive lesion affecting superior and inferior pubic rami bilaterally. There is asymmetry about the femoral head neck junction could be consistent with an impacted femoral neck fracture. AP and lateral views of the right hip: These x-rays are obtained first and are of suboptimal quality. There is evidence of femoral head neck contour deformity that could be a valgus impacted femoral neck fracture. There are no obvious destructive lesions about the proximal femur. PG Care Time/CCT Total # of Minutes Spent Total Time Spent with Patient: Total time spent is greater than 50% in coordination of care (as documented) at patient's floor/unit and/or counseling patient: Coding Level of Care Code 93219 Initial Inpt Care Lvl 3 Diagnoses Closed traumatic nondisplaced fracture of neck of femur S72.009A
[2020-02-12 08:58] LABS: Hematocrit (blood only) 29.7 % (37-47); Hemoglobin 9.4 g/dL (12.0-16.0); Mean Corpuscular Hemoglobin 28.5 pg (25-34); Mean Corpuscular Hgb Conc 31.6 g/dL (32-36); Mean Platelet Volume 11.4 fL (7.4-10.4); Platelet Count 161 K/uL (130-400); RDW Coefficient of Variation 16.6 % (11.5-14.5); White Blood Count 3.08 K/uL (4.8-10.8)
[2020-02-12] MEDS ORDERED: INFLUENZA VACCINE HIGH DOSE 65+ 0.7 ML SYR IM ONE (09:00)
[2020-02-12] MEDS ORDERED: ANASTROZOLE 1 MG TAB PO SCH (09:00)
[2020-02-12] MEDS ORDERED: FUROSEMIDE 40 MG TAB PO SCH (09:00)
[2020-02-12] MEDS ORDERED: ATORVASTATIN 40 MG TAB PO SCH (09:00)
[2020-02-12] MEDS ORDERED: INFLUENZA ADMINISTRATION CHARGE ONE (09:00)
[2020-02-12] MEDS ORDERED: POLYETHYLENE (MIRALAX) 17 GM PACK PO SCH (09:00)
[2020-02-12] MEDS ORDERED: METOPROLOL TARTRATE 25 MG TAB PO SCH (09:00)
[2020-02-12] MEDS ORDERED: PANTOprazole 40 MG TAB PO SCH (09:00)
[2020-02-12 09:31] LABS: BUN Creatinine Ratio 35.8 (10-20); Blood Urea Nitrogen 22 mg/dl (7-18); Calcium 9.4 mg/dl (8.5-10.1); Carbon Dioxide 26 mmol/L (21-32); Chloride 114 mmol/L (98-107); Creatinine Clr Calc Pharmacy 67.6 ml/min; Est GFR (African American) 95.5; Est GFR (Non-African American) 82.4; Glucose 101 mg/dl (70-99); Potassium 4.4 mmol/L (3.5-5.1); Sodium 144 mmol/L (136-145)
[2020-02-12 09:35] LABS: Troponin I < 0.015 ng/ml (0-0.045)
--- NOTE | 2020-02-12 11:15 | Hospitalist Progress Note ---
Date of Service February 12, 2020 Assessment & Plan (1) Closed traumatic nondisplaced fracture of neck of femur: 84-year-old female with a past medical history of aortic stenosis status post AVR in 2004, atrial fibrillation chronic in nature, diastolic congestive heart failure, GERD, hyperlipidemia, hypertension, pulmonary hypertension, stage IV uterine cancer followed at the cancer care clinic she presents today with hip pain * Patient with x-ray evidence of a new fracture of her right hip. * Orthopedic surgery was consulted for this. --> She also has known fractures of the bilateral pubic rami, these are secondary to her known mass. * NPO * MRI pending to confirm fracture not related to sharlene disease and not acute fracture * --> if true acute fx, plans on fixing today * Was seen by cardiology given her pulmonary hypertension -- would be highest risk post-operatively but agreeable to surgery. Consider switch to Eliquis given renal function if worsens, currectly acceptable for higher dose Xarelto but will monitor * PT/OT following surgery * Pain control -- currently reporting pain free * Daily labs EKG acceptable. Trop negative. IVF with LR 100cc/hr and did receive dose of lasix PO this morning -- will hold post-operatively Cardiac clearance pending (2) Congestive heart failure: * with preserved LV systolic function, last ECHO August 2019 * Not congested on exam * At risk for diastolic HF in perioperative period * Per patient, baseline weight 194lb * Monitor (3) Aortic stenosis: * Hx AVR 2004 for * Functional on August 2019 ECHO (4) Atrial fibrillation: * Permanent. * Rate controlled * Continue metoprolol * Could convert to standard dosing Xarelto vs switching to Eliquis at full dose -- hold pre-operatively (has not taken Xarelto in 2 days) (5) Pulmonary HTN: * Type I * Has not required vasodilators * See above (6) Hyperlipidemia: * Continue atorvastatin 40 mg (7) GERD (gastroesophageal reflux disease): * Continue omeprazole (8) Uterine cancer: * Continue anastrozole, carboplatin paclitaxel, and dexamethasone per Dr. Green. Leukopenia likely from chemo (just had yesterday) (9) DVT prophylaxis: Xarelto on hold - was recently switched to this Dispo: MRI pending, possible OR later today for repair Admission and Anticipated Discharge Date Admission Date: February 11, 2020 Subjective Patient evaluated this morning. Pain currently controlled. Had progressive weakness to her legs and had fallen prior to admission and was seen by oncology yesterday with plans for shopping after and was sent to ER for concerns for hip fracture, which was identified on imaging. Patient denies fever, chills, chest pain, shortness of breath, nausea, vomiting. Does endorse difficulty swallowing and has utilized gravies and smaller bites/dietary restrictions without issues. Plans for OR later this morning for repair of hip with pins. Review of Systems Review of Systems: All systems reviewed & are unremarkable except as noted in HPI & below Physical Exam Constitutional: well developed and well nourished; no acute distress and not intoxicated appearing Eyes: + anicteric sclerae and PERRL ENMT: Ears: no EAC abnormality Nose: no external nose abnormality Neck: trachea midline, no thyromegaly Respiratory: normal respiratory effort; no respiratory distress Cardiovascular: Rate/Rhythm: + irregularly irregular Heart Sounds: + murmur (holosystolic) Vessels: + JVD Extremities: normal capillary refill and + edema (2-3+ b/l LE lymphedema/edema) Chest (Breasts): Additional Comments: port L chest Gastrointestinal (Abdomen): normal bowel sounds, soft, nontender, no hepatosplenomegaly Musculoskeletal: +log roll RIGHT NVI pulses palpable but weak Skin: no rashes Neurologic: PERRL, EOMI, accommodation nl, no face palsy, no dysarthria Psychiatric: A+Ox3, euthymic affect Genitourinary: no sawyer Lymphatic: no cervical or axillary lymphadenopathy Results & Data Results & Data ([facility]) Vital Signs (Past 12 Hours) Vital Signs Temp Pulse Resp BP Pulse Ox 02/12/20 07:16 36.6 C 79 16 131/75 97 02/11/20 23:25 36.3 C L 77 16 142/70 H 97 Laboratory Results 02/12/20 02/12/20 02/11/20 Range/Units 08:44 08:44 Unknown WBC 3.08 L (4.8-10.8) K/uL RBC 3.30 L (4.2-5.4) M/uL Hgb 9.4 L (12.0-16.0) g/dL Hct 29.7 L (37-47) % MCV 90.0 (80-100) fL MCH 28.5 (25-34) pg MCHC 31.6 L (32-36) g/dL RDW Std Deviation 54.0 H (36.4-46.3) fL RDW Coeff of David 16.6 H (11.5-14.5) % Plt Count 161 (130-400) K/uL MPV 11.4 H (7.4-10.4) fL Immature Gran % (Auto) % Neut % (Auto) % Lymph % (Auto) % Keith % (Auto) % Eos % (Auto) % Baso % (Auto) % Neut # (Auto) (1.4-6.5) K/uL Lymph # (Auto) (1.2-3.4) K/uL [place] # (Auto) (0.11-0.59) K/uL Eos # (Auto) (0-0.5) K/uL Baso # (Auto) (0-0.2) K/uL Immature Gran # (Auto) (0.00-0.02) K/uL PT (9.0-12.0) Seconds INR (0.9-1.1) APTT (21.0-31.0) Seconds PTT Ratio Sodium 144 (136-145) mmol/L Potassium 4.4 (3.5-5.1) mmol/L Chloride 114 H (98-107) mmol/L Carbon Dioxide 26 (21-32) mmol/L Anion Gap 5.0 (3-11) BUN 22 H (7-18) mg/dl Creatinine 0.63 (0.6-1.2) mg/dl Est Cr Clr Drug Dosing 67.6 ml/min Est GFR ( Amer) 95.5 Est GFR (Non-Af Amer) 82.4 BUN/Creatinine Ratio 35.8 H (10-20) Glucose 101 H (70-99) mg/dl Calcium 9.4 (8.5-10.1) mg/dl Troponin I < 0.015 (0-0.045) ng/ml SARS-CoV-2 Ag (Rapid) Negative (Negative) Blood Type Antibody Screen 02/11/20 02/11/20 02/11/20 Range/Units 17:46 17:46 17:46 WBC 2.58 L (4.8-10.8) K/uL RBC 3.58 L (4.2-5.4) M/uL Hgb 9.8 L (12.0-16.0) g/dL Hct 31.8 L (37-47) % MCV 88.8 (80-100) fL MCH 27.4 (25-34) pg MCHC 30.8 L (32-36) g/dL RDW Std Deviation 53.2 H (36.4-46.3) fL RDW Coeff of David 16.3 H (11.5-14.5) % Plt Count 185 (130-400) K/uL MPV 10.5 H (7.4-10.4) fL Immature Gran % (Auto) 0.8 % Neut % (Auto) 85.7 % Lymph % (Auto) 8.5 % Keith % (Auto) 5.0 % Eos % (Auto) 0.0 % Baso % (Auto) 0.0 % Neut # (Auto) 2.21 (1.4-6.5) K/uL Lymph # (Auto) 0.22 L (1.2-3.4) K/uL Keith # (Auto) 0.13 (0.11-0.59) K/uL Eos # (Auto) 0.00 (0-0.5) K/uL Baso # (Auto) 0.00 (0-0.2) K/uL Immature Gran # (Auto) 0.02 (0.00-0.02) K/uL PT 13.5 H (9.0-12.0) Seconds INR 1.3 H (0.9-1.1) APTT 33.6 H (21.0-31.0) Seconds PTT Ratio 1.2 Sodium 143 (136-145) mmol/L Potassium 4.2 (3.5-5.1) mmol/L Chloride 112 H (98-107) mmol/L Carbon Dioxide 25 (21-32) mmol/L Anion Gap 6.0 (3-11) BUN 19 H (7-18) mg/dl Creatinine 0.73 (0.6-1.2) mg/dl Est Cr Clr Drug Dosing 58.3 ml/min Est GFR ( Amer) 87.7 Est GFR (Non-Af Amer) 75.6 BUN/Creatinine Ratio 25.5 H (10-20) Glucose 144 H (70-99) mg/dl Calcium 9.8 (8.5-10.1) mg/dl Troponin I (0-0.045) ng/ml SARS-CoV-2 Ag (Rapid) (Negative) Blood Type Antibody Screen 02/11/20 Range/Units 17:46 WBC (4.8-10.8) K/uL RBC (4.2-5.4) M/uL Hgb (12.0-16.0) g/dL Hct (37-47) % MCV (80-100) fL MCH (25-34) pg MCHC (32-36) g/dL RDW Std Deviation (36.4-46.3) fL RDW Coeff of David (11.5-14.5) % Plt Count (130-400) K/uL MPV (7.4-10.4) fL Immature Gran % (Auto) % Neut % (Auto) % Lymph % (Auto) % Keith % (Auto) % Eos % (Auto) % Baso % (Auto) % Neut # (Auto) (1.4-6.5) K/uL Lymph # (Auto) (1.2-3.4) K/uL [place] # (Auto) (0.11-0.59) K/uL Eos # (Auto) (0-0.5) K/uL Baso # (Auto) (0-0.2) K/uL Immature Gran # (Auto) (0.00-0.02) K/uL PT (9.0-12.0) Seconds INR (0.9-1.1) APTT (21.0-31.0) Seconds PTT Ratio Sodium (136-145) mmol/L Potassium (3.5-5.1) mmol/L Chloride (98-107) mmol/L Carbon Dioxide (21-32) mmol/L Anion Gap (3-11) BUN (7-18) mg/dl Creatinine (0.6-1.2) mg/dl Est Cr Clr Drug Dosing ml/min Est GFR ( Amer) Est GFR (Non-Af Amer) BUN/Creatinine Ratio (10-20) Glucose (70-99) mg/dl Calcium (8.5-10.1) mg/dl Troponin I (0-0.045) ng/ml SARS-CoV-2 Ag (Rapid) (Negative) Blood Type A Positive Antibody Screen NEGATIVE PG Care Time/CCT Total # of Minutes Spent Total Time Spent with Patient: Total time spent is greater than 50% in coordination of care (as documented) at patient's floor/unit and/or counseling patient: Coding Level of Care Code 02163 Subseq Hosp Care Lvl 2 Diagnoses Closed traumatic nondisplaced fracture of neck of femur S72.009A Congestive heart failure I50.9 Aortic stenosis I35.0 Atrial fibrillation I48.91 Pulmonary HTN I27.20 Hyperlipidemia E78.5 GERD (gastroesophageal reflux disease) K21.9 Uterine cancer C55 DVT prophylaxis Z29.9
[2020-02-12] MEDS ORDERED: LORazepam 0.5 MG/1 ML VIAL IV STA (12:18)
--- NOTE | 2020-02-12 12:37 | Cardiology Consultation ---
Date of Consultation February 12, 2020 Assessment & Plan (1) Aortic stenosis: Of bioprosthetic aortic valve replacement. #21 Gordy Gill valve placed in 2005. Presumably for aortic stenosis. Patient states that she has some dyspnea leading up to her valve procedure which improved subsequently. This valve is believed to be normally functioning based on echocardiogram performed in August of this year. (2) Atrial fibrillation: Permanent. Good rate control. Minimal symptoms. She should continue her current dose of metoprolol tartrate in the perioperative period. She has been appropriately anticoagulated but at a reduced dose. Based on her renal function here in the hospital she would qualify for standard dosing of rivaroxaban. If there is some concerns about her renal function, she could be switched to Eliquis at full dose. Certainly holding her anticoagulation in the perioperative period is reasonable. (3) Pulmonary HTN: Based on her prior evaluation she does appear to have type 1 pulmonary hypertension (pulmonary arterial hypertension). She is not appear to have any symptoms nor has she required any specific therapy in the way of vasodilators. It is likely that she has an element of diastolic dysfunction as well which may contribute to elevated pulmonary pressures. This certainly puts her at increased risk of perioperative complications primarily due to the possibility of transiently elevated pulmonary pressures and right ventricular failure. (4) Congestive heart failure: She has preserved LV systolic function. She had relatively normal pulmonary artery wedge pressure measured at the time of her right heart catheterization in 2016. She is not appear to have pulmonary vascular congestion currently based on examination. She is certainly at risk of diastolic heart failure, and this may complicate her volume management in the perioperative period. (5) Preoperative cardiovascular examination: She does not have any unstable arrhythmias or evidence of unstable coronary disease. Certainly she is in a demographic where she is likely to have an element of coronary disease that is not producing symptoms. She is relatively anemic and significant blood loss could unmask an element of coronary insufficiency and result in cardiac ischemia. While she may have an element of severe tricuspid regurgitation, her aortic valve appears to be working well does not pose any increased perioperative risk. The main risk from a cardiac standpoint in the perioperative. Appears to be the possibility of right heart failure. Her current degree of pulmonary hypertension is unknown. She has not required vasodilators nor did she have symptoms, but she does have right ventricular dilation on her most recent echocardiogram and certainly has elevated right-sided pressures. With reduced preload at the time of anesthesia induction or with significant volume loss there is certainly the potential for right heart decompensation. With transient increases in pulmonary pressure due to primary pulmonary hypertension she also has a risk of right heart decompensation and cardiogenic shock. Her volume status will need to be monitored closely in the perioperative. In order to support RV function and avoid RV failure. This could be accomplished with perioperative monitoring implying a pulmonary arterial catheter. As with all patients in this situation we should strive to maintain good oxygenation, avoid significant hypotension, hypertension, tachycardia and blood loss. History of Present Illness Reason for Consultation: Preoperative evaluation Requesting Physician: Leida Attending Physician: Amrit Real MD History of Present Illness The patient is an 84-year-old woman with a history of aortic valve disease status post bioprosthetic aortic valve replacement in 2004. She is also known to have permanent atrial fibrillation and type 1 pulmonary hypertension. Recently she was diagnosed with metastatic uterine cancer, and is known to have bony metastasis involving the pubic bone. She has had some difficulty with ambulation over the past couple of days and imaging revealed an impacted right femoral neck fracture. She is currently scheduled to undergo operative fixation of this fracture. The patient states that she is usually ambulatory at her own pace. This appears to involve slow walking. She is not describe significant pain at the fracture site. However, she did suffer a fall in the recent past. This did not impact her ambulation until yesterday when she apparently had difficulty walking because her left leg did not work. She denies significant breathing trouble. With more extensive activity she will get somewhat dyspneic, but does not appear to have orthopnea or paroxysmal nocturnal dyspnea. In fact, she commonly reads in bed and is currently laying flat for our interview without symptoms of dyspnea. She is occasionally aware of some palpitations at nighttime. These not appear to be bothersome during the day. She denies dizziness or lightheadedness. She has a remote history of syncope but none recently. She denies any symptoms of chest discomfort. She does have significant lower extremity edema. She claims to have had some form of drainage procedure performed on her lower extremities in the past. Allergies Allergy/AdvReac Type Severity Reaction Status Date / Time amlodipine Allergy swelling Verified 02/11/20 19:33 feet, legs, hands lisinopril Allergy cough, Verified 02/11/20 19:33 swelling, SOB losartan Allergy rash, Verified 02/11/20 19:33 hives, swelling, sleeplessness mint Allergy Swelling Verified 02/11/20 19:33 of Lip/Tongue/Throat hormone pills Allergy swelling Uncoded 02/11/20 19:33 of joints, couldn't walk, grayskin Home Medications Medication Instructions Recorded Confirmed Type acetaminophen 325 mg tablet 325 mg PO QID PRN 10/27/19 02/11/20 History anastrozole 1 mg tablet 1 mg PO QAM 10/27/19 02/11/20 History atorvastatin 40 mg tablet 40 mg PO QAM 10/27/19 02/11/20 History cholecalciferol (vitamin D3) 25 25 mcg PO PM 10/27/19 02/11/20 History mcg (1,000 unit) capsule metoprolol tartrate 50 mg tablet 25 mg PO QAM tab 10/27/19 02/11/20 History rivaroxaban 15 mg tablet 15 mg PO PM 10/27/19 02/11/20 History furosemide 40 mg PO QAM 11/23/19 02/11/20 History omeprazole [Prilosec] 40 mg PO DAILY 12/08/19 02/11/20 History polyethylene glycol 3350 17 17 g PO DAILY PRN 12/23/19 02/11/20 History gram/dose oral powder carboplatin 0 mg IV UD 01/21/20 02/11/20 History dexamethasone 2 mg PO .BID UD 01/21/20 02/11/20 History ondansetron HCl 8 mg PO Q8H PRN 01/21/20 02/11/20 History paclitaxel 0 mg IV UD 01/21/20 02/11/20 History prochlorperazine maleate 10 mg PO Q6H PRN 01/21/20 02/11/20 History Patient History Medical History Aortic stenosis S/p AVR 2004 Atrial fibrillation Chronic Congestive heart failure Chronic diastolic GERD (gastroesophageal reflux disease) Hyperlipidemia Hypertension Pulmonary HTN 06/07/15 [facility] PAP 43/12, wedge 15 with V waves to 29; 07/13/27 ECHO showed mild pulm HTN per records Uterine cancer Surgical History H/O endoscopy 2018 H/O: hysterectomy 12/1998 Uterine Cancer History of aortic valve replacement 01/2005 History of cardiac cath Prior to AVR- coronary arteries non obstructive Hx of colonoscopy 2019 Social History Smoking Status: Never smoker Second Hand Exposure: No; Hx Alcohol Use: No Hx Substance Use: No Preferred Language: Cook Islander Communication Ability: Effective 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 She claims to have a good appetite and be eating normal diet. Physical Exam Physical Exam: She is alert and oriented x3. Mood affect appear normal. She answered all questions appropriately. HEENT: Sclerae are anicteric. Pupils are equal and reactive to light and accommodation. Extraocular movements were intact. Alopecia noted Neuro: Cranial nerves intact Neck: Examination of the submandibular region did not reveal any significant lymphadenopathy. Carotids are palpable bilaterally and free of bruits on auscultation. Mild jugular venous distention. The thyroid was not enlarged. Lungs: Lungs are clear to auscultation bilaterally. There are no rales wheezes or rhonchi. She has normal respiratory effort without use of accessory muscles. There is normal pulmonary excursion. Cardiac: The rhythm was irregular. S1 and S2 were normal. Holosystolic murmur with high-pitched early systolic component. The PMI was not markedly displaced on palpation. Chest: Infusion for present in left upper pectoral area Abdomen: The abdomen was soft and nontender. Extremities: Patient has bilateral radial pulses that are equal in intensity. There is no evidence cyanosis or clubbing. Severe lower extremity lymphedema and edema bilaterally, right slightly worse than the left. Some trophic changes and mild erythema on the right pretibial region. Skin: There are no rashes noted on examination today. Results & Data ([facility]) Vital Signs (Past 12 Hours) Vital Signs Temp Pulse Resp BP Pulse Ox 02/12/20 07:16 36.6 C 79 16 131/75 97 Laboratory Results Abnormal Lab Results 02/11/20 02/11/20 02/11/20 17:46 17:46 17:46 WBC 2.58 L RBC 3.58 L Hgb 9.8 L Hct 31.8 L MCV 88.8 MCH 27.4 MCHC 30.8 L RDW Std Deviation 53.2 H RDW Coeff of David 16.3 H Plt Count 185 MPV 10.5 H Immature Gran % (Auto) 0.8 Neut % (Auto) 85.7 Lymph % (Auto) 8.5 [place] % (Auto) 5.0 Eos % (Auto) 0.0 Baso % (Auto) 0.0 Neut # (Auto) 2.21 Lymph # (Auto) 0.22 L [place] # (Auto) 0.13 Eos # (Auto) 0.00 Baso # (Auto) 0.00 Immature Gran # (Auto) 0.02 PT 13.5 H INR 1.3 H APTT 33.6 H PTT Ratio 1.2 Sodium Potassium Chloride Carbon Dioxide Anion Gap BUN Creatinine Est Cr Clr Drug Dosing Est GFR ( Amer) Est GFR (Non-Af Amer) BUN/Creatinine Ratio Glucose Calcium Troponin I SARS-CoV-2 Ag (Rapid) Blood Type A Positive Antibody Screen NEGATIVE 02/11/20 02/11/20 02/12/20 17:46 Unknown 08:44 WBC 3.08 L RBC 3.30 L Hgb 9.4 L Hct 29.7 L MCV 90.0 MCH 28.5 MCHC 31.6 L RDW Std Deviation 54.0 H RDW Coeff of David 16.6 H Plt Count 161 MPV 11.4 H Immature Gran % (Auto) Neut % (Auto) Lymph % (Auto) [place] % (Auto) Eos % (Auto) Baso % (Auto) Neut # (Auto) Lymph # (Auto) [place] # (Auto) Eos # (Auto) Baso # (Auto) Immature Gran # (Auto) PT INR APTT PTT Ratio Sodium 143 Potassium 4.2 Chloride 112 H Carbon Dioxide 25 Anion Gap 6.0 BUN 19 H Creatinine 0.73 Est Cr Clr Drug Dosing 58.3 Est GFR ( Amer) 87.7 Est GFR (Non-Af Amer) 75.6 BUN/Creatinine Ratio 25.5 H Glucose 144 H Calcium 9.8 Troponin I SARS-CoV-2 Ag (Rapid) Negative Blood Type Antibody Screen 02/12/20 08:44 WBC RBC Hgb Hct MCV MCH MCHC RDW Std Deviation RDW Coeff of David Plt Count MPV Immature Gran % (Auto) Neut % (Auto) Lymph % (Auto) [place] % (Auto) Eos % (Auto) Baso % (Auto) Neut # (Auto) Lymph # (Auto) [place] # (Auto) Eos # (Auto) Baso # (Auto) Immature Gran # (Auto) PT INR APTT PTT Ratio Sodium 144 Potassium 4.4 Chloride 114 H Carbon Dioxide 26 Anion Gap 5.0 BUN 22 H Creatinine 0.63 Est Cr Clr Drug Dosing 67.6 Est GFR ( Amer) 95.5 Est GFR (Non-Af Amer) 82.4 BUN/Creatinine Ratio 35.8 H Glucose 101 H Calcium 9.4 Troponin I < 0.015 SARS-CoV-2 Ag (Rapid) Blood Type Antibody Screen Diagnostic Findings Right heart catheterization performed 05/2015: Pulmonary artery pressure 43/14, wedge pressure 15 Echocardiogram performed 09/09/2019: Normal LV systolic function with ejection fraction of 65-70%. Mild LVH. Mild to moderate mitral regurgitation, moderate to severe tricuspid regurgitation, normally functioning aortic bioprosthetic valve. Elevated pulmonary pressures with estimated right ventricular systolic pressure of 60 mm of mercury, elevated right atrial pressure estimated 50 mm of mercury Chest x-ray obtained the time admission suggestive of mild pulmonary vascular congestion. Cardiomegaly. ECG Additional Comments: EKG demonstrated atrial fibrillation with controlled ventricular rate. Nonspecific ST and T-wave changes. No evidence of prior infarct. PG Care Time/CCT Total # of Minutes Spent Total Time Spent with Patient: Total time spent is greater than 50% in coordination of care (as documented) at patient's floor/unit and/or counseling patient: Coding Level of Care Code 65743 Initial Inpt Care Lvl 3 Diagnoses Aortic stenosis I35.0 Atrial fibrillation I48.91 Pulmonary HTN I27.20 Congestive heart failure I50.9 Preoperative cardiovascular examination Z01.810
--- NOTE | 2020-02-12 12:59 | Electrocardiogram Report ---
Test Reason : Blood Pressure : / mmHG Vent. Rate : 065 BPM Atrial Rate : 045 BPM P-R Int : 000 ms QRS Dur : 088 ms QT Int : 428 ms P-R-T Axes : 000 051 016 degrees QTc Int : 445 ms Atrial fibrillation Abnormal ECG Confirmed by Miguel Angel Gunderson ([id number]) on 02/12/2020 12:59:14 PM Referred By: Drew Green Confirmed By:Guy Gunderson
--- NOTE | 2020-02-12 14:15 | Magnetic Resonance Report ---
MR hip RT wo con CLINICAL HISTORY: Right hip pain. Metastatic carcinoma. COMPARISON STUDY: CT scan dated 12/15/2019, x-ray dated 02/11/2020 FINDINGS: The patient was imaged in the axial, sagittal, and coronal planes. There is a 16 x 13 x 13 cm cystic pelvic mass with associated bony destructive changes involving the inferior and superior pubic rami bilaterally. There is also involving the symphysis pubis. The mass e xtends to the right obturator foramen with secondary expansion. There is tumor involvement of the rig ht anterior acetabulum. The cystic mass demonstrates mural nodularity/papillary fronds and is likely neoplastic. There is a subcapital right hip fracture. There is only minimal surrounding edema. There is no evidence for neoplastic involvement of the right femoral neck. There is a small right hip joint effusion. There is right-sided subcutaneous and intramuscular edema. IMPRESSION: 1. Subcapital right hip fracture. This does not appear pathologic as there is no evidence for neoplas tic involvement of the right femoral neck. 2. 16 x 13 x 13 cm cystic pelvic mass with associated bony destructive changes involving the inferior and superior pubic rami bilaterally. There is involvement of the symphysis pubis. The mass extends t hrough the right obturator foramen with bony expansion/erosive change. 3. There is tumor involvement involving the right anterior superior acetabulum. ACT 112: Negative or not required by law. Electronically signed by: Truong Benitez M.D. 02/12/2020 2:14 PM
--- NOTE | 2020-02-12 15:15 | Orthopedic Progress Note ---
Date of Service February 12, 2020 Assessment & Plan (1) Closed traumatic nondisplaced fracture of neck of femur: MRI revealed large cystic mass that appears to erode through anterior wall and superior acetabulum. Impacted subcapital fracture confirmed. Fracture should be stabilized with CRPP despite mass and acetabular findings to avoid displacement and subsequent need for more extensive arthroplasty surgery. Cardiology consult appreciated. Pulmonary HTN and CHF complicates anesthesia options. Given overall complexity, agree with transfer to tertiary care. I am available for communication with next facility and to perform hip surgery tomorrow if transfer not possible. Present on Admission?: Yes Admission and Anticipated Discharge Date Admission Date: February 11, 2020 Subjective Present for discussion about transfer. Tolerated MRI Physical Exam Physical Exam: Pleasant and cooperative. Results & Data ([facility]) Vital Signs (Past 12 Hours) Vital Signs Temp Pulse Resp BP Pulse Ox 02/12/20 07:16 36.6 C 79 16 131/75 97 PG Care Time/CCT Total # of Minutes Spent Total Time Spent with Patient: Total time spent is greater than 50% in coordination of care (as documented) at patient's floor/unit and/or counseling patient: Coding Level of Care Code None Diagnoses Closed traumatic nondisplaced fracture of neck of femur S72.009A
--- NOTE | 2020-02-12 15:29 | Discharge Summary ---
Date of Service February 12, 2020 Admission HPI Per Admitting Provider Patient is an 84-year-old female with a past medical history of aortic stenosis status post AVR in 2004, atrial fibrillation chronic in nature, diastolic congestive heart failure, GERD, hyperlipidemia, hypertension, pulmonary hypertension, stage IV uterine cancer followed at the cancer care clinic she presents today with hip pain. She reports this that she was in her usual state of health at approximately 2 weeks ago she sustained a fall. She experienced no pain associated with this fall, no symptoms, in fact she even reports she was able to get up afterwards and vacuum the house. She lives at home with her daughter. She continued to ambulate until last when she began to experience pain, the pain progressively worsened in nature, there were no associated symptoms, no constitutional symptoms, no fevers no chills no nausea no vomiting no diarrhea, no other concerning signs or symptoms. She does not remember any further trauma besides the incident initially the described above. The pain continued to increase since last and during her visit with Dr. Green this morning he insisted that she proceed to the emergency department and obtain x-rays. X-rays demonstrated a slightly impacted subcapital right femoral neck fracture, no changes in other fractures, chest x-ray demonstrated cardiomegaly with mild congestive failure. Labs were pertinent for a depressed white blood cell count, likely secondary to her cancer treatment, hemoglobin was 9 this appears to be her baseline, INR 1.3, glucose 144 albumin was low at 2.8 SARS Covid test was negative. Given the patient's complex medical history, recent fracture, and age, she will be admitted to the hospital for orthopedic evaluation and subsequent treatment. Primary Care Provider: Mateo Wray Admission Exam Per Admitting Provider General: No acute distress HEENT: Normocephalic atraumatic Neck: Normal to visual inspection, trachea midline Cardiac: Regular rate and rhythm, I did not appreciate any significant murmurs rubs or gallops, normal S1, normal S2, 3+ pitting edema this is known Respiratory: Clear to auscultation bilaterally without significant wheezes, rales, rhonchi GI: Soft, nontender, nondistended, bowel sounds present in all 4 quadrants MSK: Moves all extremities Skin: 2 known lesions on the right lower extremity Neuro: Alert and oriented x4 Psych: Calm and cooperative Principal Diagnosis R Hip Fracture Discharge Exam Constitutional well developed and well nourished; no acute distress and not intoxicated appearing Eyes + anicteric sclerae and PERRL ENMT Ears: no EAC abnormality Nose: no external nose abnormality Neck trachea midline, no thyromegaly Respiratory normal respiratory effort; no respiratory distress Cardiovascular Rate/Rhythm: + irregularly irregular Heart Sounds: + murmur (holosystolic) Vessels: + JVD Extremities: normal capillary refill and + edema (2-3+ b/l LE lymphedema/edema) Chest (Breasts) Additional Comments: L port Gastrointestinal (Abdomen) normal bowel sounds, soft, nontender, no hepatosplenomegaly Musculoskeletal Right lower extremity: There is diffuse edema and mild erythema in her leg that is consistent with a past history of cellulitis and likely vascular congestion. She is full active range of motion through her ankle. She has no tenderness about the knee. She is nontender about the greater trochanter. She does have discomfort with logroll but does tolerate near full internal and external rotation. She has difficulty with straight leg raise. There are no overlying skin changes to about the hip. She is neurovascular intact. Skin warm, dry Neurologic PERRL, EOMI, accommodation nl, no face palsy, no dysarthria Psychiatric A+Ox3, euthymic affect Lymphatic no cervical or axillary lymphadenopathy Discharge Data Allergies Allergy/AdvReac Type Severity Reaction Status Date / Time amlodipine Allergy swelling Verified 02/11/20 19:33 feet, legs, hands lisinopril Allergy cough, Verified 02/11/20 19:33 swelling, SOB losartan Allergy rash, Verified 02/11/20 19:33 hives, swelling, sleeplessness mint Allergy Swelling Verified 02/11/20 19:33 of Lip/Tongue/Throat hormone pills Allergy swelling Uncoded 02/11/20 19:33 of joints, couldn't walk, grayskin Consultations 02/11/20 18:28 ED Decision to Admit Stat 02/11/20 21:54 Consult Orthopedic Surgery Routine 02/12/20 11:51 Consult Cardiology Routine Procedures Performed Operation Date: 02/12/20 14:05 <No data on this case meets the specified criteria> Ordered Studies 02/12/20 FL fluoroscopy <1hr Routine FL hip RT 2-3V Routine 02/12/20 11:46 MR hip RT wo con Stat Hospital Course (1) Closed traumatic nondisplaced fracture of neck of femur: 84-year-old female with a past medical history of aortic stenosis status post AVR in 2004, atrial fibrillation chronic in nature, diastolic congestive heart failure, GERD, hyperlipidemia, hypertension, pulmonary hypertension, stage IV uterine cancer followed at the cancer care clinic she presents today with hip pain following fall * Patient with x-ray evidence of a new fracture of her right hip. * Orthopedic surgery was consulted for this. --> She also has known fractures of the bilateral pubic rami, these are secondary to her known mass. * NPO * MRI pending to confirm fracture not related to sharlene disease and not acute fracture * --> if true acute fx, plans on fixing today * Was seen by cardiology given her pulmonary hypertension -- would be highest risk post-operatively but agreeable to surgery. Would recommend pulm artery catheter monitoring during fermin-operative period * *Per anethesia, orthopedics, and MRI results with need for invasive monitoring during operative period, decision was made to persue transfer to tertiary care for repair * MRI Results: * 1. Subcapital right hip fracture. This does not appear pathologic as there is no evidence for neoplastic involvement of the right femoral neck. * 2. 16 x 13 x 13 cm cystic pelvic mass with associated bony destructive changes involving the inferior and superior pubic rami bilaterally. There is involvement of the symphysis pubis. The mass extends through the right obturator foramen with bony expansion/erosive change * 3. There is tumor involvement involving the right anterior superior acetabulum. * Of note, consider switch to Eliquis given renal function if worsens, correctly acceptable for higher dose Xarelto but will monitor * EKG acceptable. Trop negative * IVF with LR 100cc/hr and did receive dose of lasix PO this morning * Needing transferred to tertiary facility for repair/invasive fermin-operative monitoring (2) Congestive heart failure: * with preserved LV systolic function, last ECHO August 2019 * Not congested on exam * At risk for diastolic HF in perioperative period * Per patient, baseline weight 194lb * Monitor with pulm catheter perioperatively at tertiary facility (3) Aortic stenosis: * Hx AVR 2004 for -- Functional on August 2019 ECHO (4) Atrial fibrillation: * Permanent. * Rate controlled * Continued metoprolol * Could convert to standard dosing Xarelto vs switching to Eliquis at full dose -- hold pre-operatively (has not taken Xarelto in 2 days) (5) Pulmonary HTN: * Type I * Has not required vasodilators * See above (6) Hyperlipidemia: * Continued atorvastatin 40 mg (7) GERD (gastroesophageal reflux disease): * Continue PPI (8) Uterine cancer: * Continued anastrozole, carboplatin paclitaxel, and dexamethasone per Dr. Green. Leukopenia likely from chemo (just had yesterday) (9) DVT prophylaxis: Xarelto on hold - was recently switched to this Plan was discussed with patient's daughter, Haily, at length. Spoke with Dr. Charles (internal medicine) and Dr. Ramires (orthopedics) from [facility] who have accepted patient. Dispo: transportation to [facility] being arranged. Transfer when bed available and transportation set up. Total Time Total Time Spent Total Time Spent (In Minutes): 120 Discharge Plan Discharge Items Reason For Visit: PELVIC FRACTURE Medications and DC Order Prescriptions: No Action polyethylene glycol 3350 [Miralax] 17 gram/dose powder 17 g PO DAILY PRN (Reason: Constipation) RF: 0 metoprolol tartrate 50 mg tablet 25 mg PO QAM RF: 0 Xarelto 15 mg tablet 15 mg PO PM RF: 0 atorvastatin 40 mg tablet 40 mg PO QAM RF: 0 cholecalciferol (vitamin D3) 25 mcg (1,000 unit) capsule 25 mcg PO PM RF: 0 anastrozole 1 mg tablet 1 mg PO QAM RF: 0 acetaminophen 325 mg tablet 325 mg PO QID PRN (Reason: Pain) RF: 0 omeprazole [Prilosec] 40 mg Capsule,Delayed Release(Dr/Ec) 40 mg PO DAILY RF: 0 ondansetron HCl 8 mg Tablet 8 mg PO Q8H PRN (Reason: Nausea) RF: 0 prochlorperazine maleate 10 mg Tablet 10 mg PO Q6H PRN (Reason: Nausea) RF: 0 dexamethasone 4 mg Tablet 2 mg PO .BID UD RF: 0 paclitaxel 6 mg/mL Concentrate 0 mg IV UD RF: 0 carboplatin 150 mg Recon Soln 0 mg IV UD RF: 0 furosemide 40 mg tablet 40 mg PO QAM RF: 0 Admission Data Admit Date/Time: 02/11/20 19:53 Attending Provider: Amrit Real Admit Provider: Amor Rothman I. Primary Care Provider: Mateo Wray Other Providers: Deepthi Ramirez ; Sara Dwyer ; Goyo Patterson ; Dylon Hendrickson ; Christoph Villafana ; Arnaud Mendoza ; Angelita Uribe ; Dick Patel ; Liliana Doe ; Drew Rothman ; Milan Gomez ; Skinny Kimble ; Skinny Singh ; Muna De Leon ; Amrit Real ; Peter Gunderson Coding Level of Care Code D/C Day Management >30 mins Diagnoses Closed traumatic nondisplaced fracture of neck of femur S72.009A Congestive heart failure I50.9 Aortic stenosis I35.0 Atrial fibrillation I48.91 Pulmonary HTN I27.20 Hyperlipidemia E78.5 GERD (gastroesophageal reflux disease) K21.9 Uterine cancer C55 DVT prophylaxis Z29.9
[2020-02-12 16:07] VITALS: BP 134/68; PULSE 67; TEMP 97.3; O2SAT 96
--- NOTE | 2020-02-13 03:04 | Billing Data ---
Date of Service February 13, 2020 Coding Level of Care Code 30186 OBS Care - Level 3
== END 2020-02-12 19:58 | disposition short-term general hospital (02) | DRG 964 ==
LOC: ED 15:32 → SUATTDRO 19:53 → 3N 19:53